=== PATIENT | male | born 1955 | race African-American/Black ===

== ENCOUNTER 2017-03-30 19:17 | Emergency (ER) | payer OTHER, MEDICAID ==
[~2017-03-30 19:17] MED LIST: ASPI81CH43 PO; Atorvastatin Calcium PO; CLOP75TA28 PO; ENA10T PO; FURO20TA PO; HYD25T PO; Hctz PO; MET50T PO; POT10T PO
== END 2017-03-30 19:38 | disposition left against medical advice (07) ==
LOC: ER 19:17
DX: H57.8 Other specified disorders of eye and adnexa (principal); Z53.21 Procedure and treatment not carried out due to patient leaving prior to being seen by health care provider

== ENCOUNTER 2023-03-15 13:56 | Emergency (ER) | payer OTHER, MEDICAID ==
[~2023-03-15] VITALS: Ht 175.3 cm; Wt 70.4 kg
[~2023-03-15 13:56] MED LIST changes: -ENA10T PO; +ENAL1TAB46 PO; +FURO1TAB33 PO; -FURO20TA PO
[2023-03-15 14:31] LABS: Basophils # (auto) 0.1 10 ^3/uL (0-0.2); Eosinophils # (auto) 0.2 10 ^3/uL (0-0.8); Eosinophils % (auto) 2.2 % (0.0-7.0); Hematocrit 41.9 % (41.0-53.0); Hemoglobin 13.7 g/dL (13.5-17.5); Lymphocytes % (auto) 26.8 % (10.0-50.0); Mean Corpuscular Hemoglobin 29.3 pg (28.0-32.0); Mean Corpuscular Hgb Conc. 32.7 g/dL (32.0-36.0); Mean Corpuscular Volume 89.4 fL (80.0-100.0); Monocytes # (auto) 0.8 10 ^3/uL (0-1.3); Monocytes % (auto) 6.8 % (0.0-12.0); Neutrophils % (auto) 63.2 % (37.0-80.0); Nucleated Red Blood Cells % 0.2 %; Red Blood Cells 4.68 10^6/uL (4.5-5.90); Red Cell Distribution Width 13.9 % (11.8-14.3); White Blood Cell 11.1 10^3/uL (4.4-10.8)
[2023-03-15 14:50] LABS: Calcium 9.1 mg/dL (8.5-10.1); Potassium 4.6 mmol/L (3.5-5.1)
[2023-03-15 14:53] LABS: Bilirubin, Total 0.3 mg/dL (0.2-1.0); Total Protein 7.7 g/dL (6.4-8.2)
[2023-03-15 18:51] VITALS: BP 185/94; PULSE 69; RESP 18; TEMP 98.4; O2SAT 98
== END 2023-03-15 18:57 | disposition home or self-care (01) ==
LOC: ER 13:56
DX: I20.9 Angina pectoris, unspecified (principal); I20.8 Other forms of angina pectoris; E78.5 Hyperlipidemia, unspecified; I10 Essential (primary) hypertension; Z88.5 Allergy status to narcotic agent; Z79.82 Long term (current) use of aspirin; Z79.899 Other long term (current) drug therapy; Z87.891 Personal history of nicotine dependence
CPT/HCPCS: 36415; 71045; 80053; 84484; 85025; 93005

== ENCOUNTER 2023-12-08 13:07 | Inpatient (IN) | payer OTHER, MEDICAID ==
[~2023-12-08] VITALS: Ht 176.5 cm; Wt 65.5 kg
[~2023-12-08 13:07] MED LIST changes: +IBUP-1454 PO
[2023-12-08 13:41] LABS: Basophils # (auto) 0.1 10 ^3/uL (0-0.2); Eosinophils # (auto) 0.3 10 ^3/uL (0-0.8); Eosinophils % (auto) 2.7 % (0.0-7.0); Hematocrit 41.6 % (41.0-53.0); Hemoglobin 13.7 g/dL (13.5-17.5); Lymphocytes # (auto) 4.2 10 ^3/uL (0.4-5.4); Lymphocytes % (auto) 37.5 % (10.0-50.0); Mean Corpuscular Hemoglobin 29.6 pg (28.0-32.0); Mean Corpuscular Hgb Conc. 32.9 g/dL (32.0-36.0); Mean Corpuscular Volume 89.7 fL (80.0-100.0); Monocytes # (auto) 0.8 10 ^3/uL (0-1.3); Monocytes % (auto) 7.5 % (0.0-12.0); Neutrophils # (auto) 5.8 10 ^3/uL (1.6-8.6); Neutrophils % (auto) 51.3 % (37.0-80.0); Nucleated Red Blood Cells % 0.1 %; Red Blood Cells 4.64 10^6/uL (4.5-5.90); Red Cell Distribution Width 14.4 % (11.8-14.3); White Blood Cell 11.2 10^3/uL (4.4-10.8)
[2023-12-08 13:59] LABS: INR 1.07 (0.9-1.15); Partial Thromboplastin Time 35.4 SEC (24.5-34.5); Prothrombin Time 11.2 sec (9.3-11.8)
[2023-12-08 14:02] LABS: Alanine Aminotransferase 15 U/L (7-40); Albumin 4.6 g/dL (3.2-4.8); Alkaline Phosphatase 90 U/L (46-116); Anion Gap 2 (5-15); Aspartate Aminotransferase 17 U/L (13-40); BUN/Creatinine Ratio 14.6 (10.0-20.0); Blood Urea Nitrogen 14 mg/dL (9-23); Calcium 9.6 mg/dL (8.7-10.4); Carbon Dioxide 24 mmol/L (20-30); Chloride 114 mmol/L (98-107); Glucose 97 mg/dL (74-106); Potassium 3.9 mmol/L (3.5-5.1); Sodium 140 mmol/L (136-145)
[2023-12-08 14:03] LABS: Bilirubin, Total 0.4 mg/dL (0.2-1.0); Total Protein 7.7 g/dL (5.7-8.2)
[2023-12-08] MEDS ORDERED: MORPHINE SULFATE INJ 2 MG/ml SYRG IV PRN ×2 (16:00)
[2023-12-08] MEDS ORDERED: NITROGLYCERIN 0.4 MG SL TAB SL PRN (16:00)
[2023-12-08] MEDS ORDERED: ACETAMINOPHEN 500 MG TAB PO PRN (16:00)
[2023-12-08] MEDS ORDERED: ONDANSETRON HCL 4 MG/2 ML VIAL IV PRN (16:00)
[2023-12-08] MEDS: ASPirin 325 MG TAB PO ONE (16:24)
[2023-12-08 18:38] VITALS: PULSE 51; RESP 12; O2SAT 99
[2023-12-08] MEDS: NITROGLYCERIN 0.4MG/HR TOPICAL PATCH TD ONE (18:52)
[2023-12-08 19:45] VITALS: PULSE 60; RESP 14; O2SAT 97
[2023-12-08 22:00] VITALS: BP 161/83; PULSE 63; RESP 18; TEMP 97.7; O2SAT 96
[2023-12-08 22:18] VITALS: BP 161/83; PULSE 63; RESP 18; TEMP 97.7; O2SAT 96
[2023-12-08] MEDS: METOPROLOL TARTRATE 25 MG TAB PO SCH (22:32)
[2023-12-08] MEDS: DOCUSATE SOD 100 MG CAP PO SCH (22:32)
[2023-12-08] MEDS: ATORVASTATIN 20 MG TAB PO SCH (22:32)
[2023-12-08] MEDS: ENOXAPARIN SOD 100 MG/1 ML SYRINGE SC SCH (22:33)
[2023-12-08] MEDS: HYDROcodone-ACET 5/325MG TAB PO PRN (22:34)
[2023-12-09] VITALS (9 sets, daily range): BP systolic 109–165; BP diastolic 63–83; PULSE 50–59; RESP 15–20; TEMP 97.7–98.5; O2SAT 96–99
[2023-12-09 00:17] LABS: Urine Bacteria None Seen /hpf (None Seen)
[2023-12-09 00:46] LABS: Urine Blood Negative /uL (Negative); Urine Clarity Clear (Clear); Urine Color Light-Yellow (Yellow); Urine Protein, UAD Negative (Negative); Urine Specific Gravity 1.017 (1.001-1.035); Urine Urobilinogen Normal (Negative); Urine WBC 1 /hpf (0 - 3); Urine pH 6.5 (5.0-9.0)
[2023-12-09 10:25] LABS: Anion Gap 7 (5-15); Carbon Dioxide 24 mmol/L (20-30); Chloride 109 mmol/L (98-107); Potassium 3.8 mmol/L (3.5-5.1); Sodium 140 mmol/L (136-145)
[2023-12-09 10:27] LABS: INR 1.04 (0.9-1.15); Partial Thromboplastin Time 33.6 SEC (24.5-34.5); Prothrombin Time 10.9 sec (9.3-11.8)
[2023-12-09] MEDS: ASPirin-EC 81 mg tab PO SCH (10:27)
[2023-12-09 10:30] LABS: Glucose 92 mg/dL (74-106)
[2023-12-09 10:31] LABS: BUN/Creatinine Ratio 13.5 (10.0-20.0); Blood Urea Nitrogen 13 mg/dL (9-23)
[2023-12-09 12:01] LABS: Basophils # (auto) 0.1 10 ^3/uL (0-0.2); Basophils % (auto) 0.6 % (0.0-2.0); Eosinophils # (auto) 0.3 10 ^3/uL (0-0.8); Eosinophils % (auto) 2.6 % (0.0-7.0); Hematocrit 39.2 % (41.0-53.0); Lymphocytes # (auto) 4.2 10 ^3/uL (0.4-5.4); Lymphocytes % (auto) 39.5 % (10.0-50.0); Mean Corpuscular Hemoglobin 29.8 pg (28.0-32.0); Mean Corpuscular Hgb Conc. 33.5 g/dL (32.0-36.0); Monocytes # (auto) 0.9 10 ^3/uL (0-1.3); Monocytes % (auto) 8.1 % (0.0-12.0); Nucleated Red Blood Cells % 0.2 %
[2023-12-09 12:08] LABS: Neutrophils # (auto) 5.3 10 ^3/uL (1.6-8.6); Neutrophils % (auto) 49.2 % (37.0-80.0); White Blood Cell 10.7 10^3/uL (4.4-10.8)
[2023-12-09 12:13] LABS: Hemoglobin 13.1 g/dL (13.5-17.5)
[2023-12-09] MEDS ORDERED: METO25TA5 PO (14:14)
[2023-12-09] MEDS ORDERED: RIVA2.5T PO (14:14)
[2023-12-09] MEDS ORDERED: NIFE90TA75 PO (14:14)
[2023-12-09] MEDS ORDERED: ENAL1TAB46 PO (14:16)
[2023-12-09] MEDS: hydrALAZINE HCL 20 MG/ML VL IV PRN (16:59)
[2023-12-10] VITALS (8 sets, daily range): BP systolic 153–170; BP diastolic 57–83; PULSE 54–99; RESP 14–20; TEMP 97.3–98.1; O2SAT 95–99
[2023-12-10] MEDS: LOSARTAN POTASSIUM 25 MG TAB PO ONE (14:32)
[2023-12-10] MEDS: HYDROcodone-ACET 10/325MG TAB PO PRN (15:36)
[2023-12-11] VITALS (7 sets, daily range): BP systolic 143–190; BP diastolic 67–76; PULSE 48–62; RESP 14–18; TEMP 97.4–98.2; O2SAT 96–98
[2023-12-11] MEDS: LOSARTAN POTASSIUM 25 MG TAB PO SCH (08:14)
[2023-12-11] MEDS: HYDROcodone-ACET 10/325MG TAB PO PRN (20:22)
[2023-12-12] VITALS (10 sets, daily range): BP systolic 146–196; BP diastolic 55–81; PULSE 51–62; RESP 12–17; TEMP 36.6; O2SAT 93–98
[2023-12-12] MEDS: IODIXANOL 320MG/ML 100ML BTL IV ONE (07:58)
[2023-12-12] MEDS: LIDOCAINE 2%HCL (LOCAL ANESTH.) INJ 20ML MDV ONE (07:58)
[2023-12-12] MEDS: fentaNYL CITRATE 100 MCG/2 ML VL ONE (08:02)
[2023-12-12] MEDS: ANGIOMAX 250 MG VIAL IV ONE (08:02)
[2023-12-12] MEDS: MIDAZOLAM HCL 2MG/2ML 2ml VIAL (1mg/ml) ONE (08:02)
[2023-12-12] MEDS: VERAPAMIL 2.5MG/ML INJ 2ML VIAL IV ONE (08:02)
[2023-12-12] MEDS: HEPARIN SODIUM (PORCINE) 5000 UNITS/ML 1ML VIAL ONE (08:02)
[2023-12-12] MEDS: SODIUM CHL 0.9% 0 ML ONE (08:03)
[2023-12-12] MEDS ORDERED: ISOS1TAB28 PO (09:56)
[2023-12-12] MEDS: ISOSORBIDE MONONITRATE ER 60 MG TAB PO SCH (10:51)
[2023-12-12] MEDS ORDERED: HYDR-4902 PO (11:27)
== END 2023-12-12 16:04 | disposition home or self-care (01) | DRG 287 ==
LOC: ER 13:07 → TELE 15:51 → TELE-EAST 15:56
PROVIDERS: ADMIT Nurse Practitioner Acute Care; ATTEND Nurse Practitioner Acute Care
PROC: B211YZZ Fluoroscopy of Multiple Coronary Arteries using Other Contrast (ICD-10-PCS; principal; 2023-12-12)
PROC: 4A023N7 Measurement of Cardiac Sampling and Pressure, Left Heart, Percutaneous Approach (ICD-10-PCS; 2023-12-12)
DX: T82.855A Stenosis of coronary artery stent, initial encounter (principal); I25.10 Atherosclerotic heart disease of native coronary artery without angina pectoris; E78.5 Hyperlipidemia, unspecified; M54.9 Dorsalgia, unspecified; Y83.1 Surgical operation with implant of artificial internal device as the cause of abnormal reaction of the patient, or of later complication, without mention of misadventure at the time of the procedure; G89.4 Chronic pain syndrome; I11.0 Hypertensive heart disease with heart failure; Z79.899 Other long term (current) drug therapy; Z87.891 Personal history of nicotine dependence; Z88.6 Allergy status to analgesic agent; Y92.89 Other specified places as the place of occurrence of the external cause
CPT/HCPCS: 36415; 71045; 80048; 80053; 81001; 83735; 83880; 84484; 85025; 85610; 85730; 86141; 93005; 93306; 93458; 99152; 99291; G0378; J2250; Q9967

== ENCOUNTER 2024-12-28 15:43 | Inpatient (IN) | payer OTHER, MEDICAID ==
[~2024-12-28] VITALS: Ht 177.8 cm; Wt 65.0 kg
[~2024-12-28 15:43] MED LIST changes: -Atorvastatin Calcium PO; -CLOP75TA28 PO; -FURO1TAB33 PO; -HYD25T PO; +HYDR-4902 PO; -Hctz PO; +ISOS1TAB28 PO; -MET50T PO; +METO25TA5 PO; +NIFE90TA75 PO; -POT10T PO; +RIVA2.5T PO
--- NOTE | 2024-12-28 15:55 | ED.PDOC ---
History of Present Illness HPI Comments 69-year-old male came from [facility] because has been feeling dizzy for the past few weeks more so started yesterday. Patient unable to ambulate without feeling dizzy. His blood pressure was 202/91 heart rate of 47. He does take enalapril metoprolol nifedipine for his blood pressure. History of coronary artery stent placement eight years ago. Denies any other symptoms. Time Seen by MD: 15:49 Primary Care Provider: VLADIMIR Lemus Notes: Nurses Notes, Medications, Allergies Allergies: Coded Allergies: Morphine (Verified Allergy, Severe, seizure, 03/21/16) Home Meds Active Scripts Hydrocodone-Acetaminophen (Hydrocodone Bitartrate/AC 5-325 mg) 1 Tab Tab, 1 TAB PO Q6HP PRN for 5 Days, #20 TAB Prov:LAURYN BETANCUR CAMERA REPAIRER 12/12/23 Isosorbide Mononitrate (Isosorbide Mononitrate Er) 30 Mg Tab, 1 TAB PO DAILY for 60 Days, #60 TAB 5 Refills Prov:LAURYN BETANCUR NP 12/12/23 Ibuprofen (Ibuprofen) 600 Mg Tab, 1 TAB PO Q6HP PRN, #30 TAB Prov:NARESH FRANKLIN PAC 12/04/23 Aspirin (Asa) 81 Mg Ch, 81 MG PO DAILY, #30 Prov:TOÑITO CORONADO MD 03/15/16 Reported Medications Enalapril Maleate (VASOTEC TABLET) 10 Mg Tb, 1 TAB PO DAILY, TAB 12/09/23 Rivaroxaban (Xarelto) 2.5 Mg Tab, 2.5 MG PO BID, TAB 12/09/23 Nifedipine (Nifedipine Er) 90 Mg Tab, 90 MG PO DAILY, TAB 12/09/23 Metoprolol Tartrate (Metoprolol Tartrate) 25 Mg Tab, 25 MG PO BID, MG 12/09/23 Information Source: Patient, Emergency Med Personnel Mode of Arrival: EMS Severity: Moderate Timing: Days Duration: Since onset Past Medical History PAST MEDICAL HISTORY: High Lipids, HTN, ME Surgical History: PTCA Family History Family History: Unobtainable Social History Smoker: Quit Greater Than 1 Year, Cigarettes Alcohol: Denies ETOH Use Drugs: Marijuana Lives In: Home Constitutional: denies: chills, diaphoresis, fatigue, fever, malaise, sweats, weakness, others EENTM: denies: blurred vision, double vision, ear bleeding, ear discharge, ear drainage, ear pain, ear ringing, eye pain, eye redness, hearing loss, mouth pain, mouth swelling, nasal discharge, nose bleeding, nose congestion, nose pain, photophobia, tearing, throat pain, throat swelling, voice changes, others Respiratory: denies: cough, hemoptysis, orthopnea, SOB at rest, shortness of breath, SOB with excertion, stridor, wheezing, others Cardiovascular: denies: chest pain, dizzy spells, diaphoresis, Dyspnea on exertion, edema, irregular heart beat, left arm pain, lightheadedness, palpitations, PND, syncope, others Gastrointestinal: denies: abdomen distended, abdominal pain, blood streaked bowels, constipated, diarrhea, dysphagia, difficulty swallowing, hematemesis, melena, nausea, poor appetite, poor fluid intake, rectal bleeding, rectal pain, vomiting, others Genitourinary: denies: burning, dysuria, flank pain, frequency, hematuria, incontinence, penile discharge, penile sore, pain, testicle pain, testicle swelling, urgency, others Neurological: reports: dizziness; denies: fainting, headache, left sided numbness, left sided weakness, numbness, paresthesia, pre-existing deficit, right sided numbness, right sided weakness, seizure, speech problems, tingling, tremors, weakness, others Musculoskeletal: denies: back pain, gout, joint pain, joint swelling, muscle pain, muscle stiffness, neck pain, others Integumetry: denies: bruises, change in color, change in hair/nails, dryness, laceration, lesions, lumps, rash, wounds, others Allergic/Immunocompromised: denies: Difficulty Healing, Frequent Infections, Hives, Itching, others Hematologic/Lymphatic: denies: anemia, blood clots, easy bleeding, easy bruising, swollen glands, others Endocrine: denies: excessive hunger, excessive sweating, excessive thirst, excessive urination, flushing, intolerance to cold, intolerance to heat, unexplained weight gain, unexplained weight loss, others Psychiatric: denies: anxiety, bipolar disorder, depression, hopeless, panic disorder, schizophrenia, sleepless, suicidal, others Physical Exam General Appearance: Moderate Distress HEENT: Normal ENT Inspection, Pharynx Normal, TMs Normal Neck: Full Range of Motion, Non-Tender, Normal, Normal Inspection Respiratory: Chest Non-Tender, Lungs Clear, No Accessory Muscle Use, No Respiratory Distress, Normal Breath Sounds Cardiovascular: Bradycardia Breast Exam: Deferred Gastrointestinal: No Organomegaly, Non Tender, No Pulsatile Mass, Normal Bowel Sounds, Soft Genitalia: Deferred Pelvic: Deferred Rectal: Deferred Extremities: No calf tenderness, Normal capillary refill, Normal inspection, Normal range of motion, Non-tender, No pedal edema Musculoskeletal : Apperance: Normal Neurologic: Alert, charge preparation technician II-XII nml as Tested, No Motor Deficits, Normal Affect, Normal Mood, No Sensory Deficits Cerebellar Function: NOT DONE Reflexes: NOT DONE Skin: Dry, Normal Color, Warm Peripheral Pulses: 3+ Radial (R), 3+ Radial (L) Lymphatic: No Adenopathy Was a procedure done? Was a procedure done?: No EKG EKG : Pulse Rate (adult): 47 Cardiac Rhythm: SB Differential Dx Considerations may include: Bradycardia Electrolyte imbalance X-Ray, Labs, Meds, VS Vital Signs Date Time Temp Pulse Resp B/P (MAP) Pulse Ox O2 Delivery O2 Flow Rate FiO2 12/28/24 16:52 65 22 98 Room Air* 0 21 12/28/24 16:51 97.5 65 22 181/74 (109) 98 97.5 12/28/24 16:39 99.0 47 16 202/91 (128) 98 99.0 12/28/24 15:55 47 Lab Test 12/28/24 16:30 12/28/24 16:25 12/28/24 15:58 Range/Units POC Glucose 103 93 70-106 mg/dl White Blood Count 12.3 H 4.4-10.8 10^3/uL Red Blood Count 4.82 4.5-5.90 10^6/uL Hemoglobin 14.4 13.5-17.5 g/dL Hematocrit 43.0 41.0-53.0 % Mean Corpuscular Volume 89.1 80.0-100.0 fL Mean Corpuscular Hemoglobin 29.8 28.0-32.0 pg Mean Corpuscular Hemoglobin Concent 33.4 32.0-36.0 g/dL Red Cell Distribution Width 13.9 11.8-14.3 % Platelet Count 273 140-450 10^3/uL Mean Platelet Volume 7.6 6.9-10.8 fL Neutrophils (%) (Auto) 75.5 37.0-80.0 % Lymphocytes (%) (Auto) 17.3 10.0-50.0 % Monocytes (%) (Auto) 6.2 0.0-12.0 % Eosinophils (%) (Auto) 0.5 0.0-7.0 % Basophils (%) (Auto) 0.5 0.0-2.0 % Neutrophils # (Auto) 9.3 H 1.6-8.6 10 ^3/uL Lymphocytes # (Auto) 2.1 0.4-5.4 10 ^3/uL Monocytes # (Auto) 0.8 0-1.3 10 ^3/uL Eosinophils # (Auto) 0.1 0-0.8 10 ^3/uL Basophils # (Auto) 0.1 0-0.2 10 ^3/uL Nucleated Red Blood Cells 0.1 % Sodium Level 144 136-145 mmol/L Potassium Level 5.0 3.5-5.1 mmol/L Chloride Level 111 H 98-107 mmol/L Carbon Dioxide Level 28 20-31 mmol/L Anion Gap 5 5-15 Blood Urea Nitrogen 21 9-23 mg/dL Creatinine 1.07 0.700-1.30 mg/dL Glomerular Filtration Rate Calc 76 >90 mL/min BUN/Creatinine Ratio 19.6 10.0-20.0 Serum Glucose 100 74-106 mg/dL Calcium Level 9.5 8.7-10.4 mg/dL Troponin I High Sensitivity 20 </=54 ng/L Current Medications Medications (Trade) Dose Ordered Sig/Spring Route Start Time Stop Time Status Last Admin Sodium Chloride 1,000 ml @ 1,000 mls/hr Q1H ONCE IV 12/28/24 16:00 12/28/24 16:59 DC 12/28/24 16:35 Glucagon (Glucagen) 1 mg ONCE ONCE IM 12/28/24 16:15 12/28/24 16:16 DC 12/28/24 16:42 Patient alert. Complaining of dizziness. Possibly from the heart. Blood pressure elevated. Was given clonidine. EKG does show Bradycardia. Was given glucagon. Establish intravenous access. Was given fluids. Continues to be bradycardic. Cardiology consultation. Echocardiogram. Pacemaker evaluation. Possibly from metoprolol. Reviewed his history. Explained to the patient. Continue monitoring. While waiting for a bed he had a syncopal episode in the ER. Cardiac marker within normal limits. WBC elevated. Possible dehydration. [place] approved inpatient admission [id number]. Time of 1ST Reevaluation: 15:52 Reevaluation 1ST: Unchanged Patient Education/Counseling: Diagnosis, Treatment, Prognosis Family Education/Counseling: No Family Present Departure 1 Departure Time of Disposition: 15:54 Impression: Primary Impression: Bradycardia Additional Impressions: Hypertensive urgency Syncope Qualified Codes: R55 - Syncope and collapse Disposition: 09 ADMITTED INPATIENT Admit to: Med Surg Condition: Guarded Critical Care Note Critical Care Time?: Yes (90 min-critical care time only) Critical care comment: Bradycardia Stability Stability form required: No Heart Score Heart Score: Heart Score Response (Comments) Value History Slightly Suspicious 0 EKG Normal 0 Age >65 2 Risk Factors >3 or Hx ASHD 2 Troponin Normal limit 0 Total 4 OBDULIO KUNZ MD December 28, 2024 15:55
[2024-12-28] MEDS: SODIUM CHLORIDE 0.9% 1,000 ML IV ONE ×2 (16:35→18:59)
[2024-12-28 16:40] LABS: Basophils # (auto) 0.1 10 ^3/uL (0-0.2); Basophils % (auto) 0.5 % (0.0-2.0); Eosinophils # (auto) 0.1 10 ^3/uL (0-0.8); Eosinophils % (auto) 0.5 % (0.0-7.0); Hemoglobin 14.4 g/dL (13.5-17.5); Lymphocytes # (auto) 2.1 10 ^3/uL (0.4-5.4); Lymphocytes % (auto) 17.3 % (10.0-50.0); Mean Corpuscular Hemoglobin 29.8 pg (28.0-32.0); Mean Corpuscular Hgb Conc. 33.4 g/dL (32.0-36.0); Mean Corpuscular Volume 89.1 fL (80.0-100.0); Monocytes # (auto) 0.8 10 ^3/uL (0-1.3); Monocytes % (auto) 6.2 % (0.0-12.0); Neutrophils # (auto) 9.3 10 ^3/uL (1.6-8.6); Neutrophils % (auto) 75.5 % (37.0-80.0); Nucleated Red Blood Cells % 0.1 %; Platelet Count (auto) 273 10^3/uL (140-450); Red Blood Cells 4.82 10^6/uL (4.5-5.90); Red Cell Distribution Width 13.9 % (11.8-14.3); White Blood Cell 12.3 10^3/uL (4.4-10.8)
[2024-12-28] MEDS: GLUCAGON EMERG KIT 1mg/1ml IM ONE (16:42)
[2024-12-28 16:46] LABS: Sodium 144 mmol/L (136-145)
[2024-12-28 16:47] LABS: Anion Gap 5 (5-15); Calcium 9.5 mg/dL (8.7-10.4); Carbon Dioxide 28 mmol/L (20-31)
[2024-12-28 16:49] LABS: Chloride 111 mmol/L (98-107)
[2024-12-28 16:52] VITALS: PULSE 65; RESP 22; O2SAT 98
[2024-12-28 16:52] LABS: BUN/Creatinine Ratio 19.6 (10.0-20.0); Blood Urea Nitrogen 21 mg/dL (9-23); Glucose 100 mg/dL (74-106)
[2024-12-28 18:08] LABS: Urine Bacteria None Seen /hpf (None Seen)
[2024-12-28] MEDS: hydrALAZINE HCL 20 MG/ML VL IV ONE (18:15)
[2024-12-28 18:36] LABS: Urine Blood Negative /uL (Negative); Urine Clarity Clear (Clear); Urine Color Light-Yellow (Yellow); Urine Protein, UAD Negative (Negative); Urine Squamous Epithelial Cell FEW /hpf (<5); Urine Urobilinogen Normal (Negative); Urine WBC < 1 /HPF (0-3)
--- NOTE | 2024-12-28 19:07 | DVH ---
EXAM: CT HEAD WITHOUT CONTRAST INDICATION: dizzy TECHNIQUE: CT of the head without intravenous contrast. Radiation Dose Information: CT Dose: CTDI volume is 4.84 mGy. Dose-length product is 971.32 mGy*cm The dose indicators for CT are the volume Computed Tomography (CT) Dose Index (CTDIvol) and the Dose Length Product (DLP), and are measured in units of mGy and mGy-cm, respectively. These indicators are not patient dose, but values generated from the CT scanner acquisition factors. The report includes radiation exposure data for exposures received during this examination. COMPARISON: None FINDINGS: There is no evidence of acute intracranial hemorrhage, extra-axial collection, mass effect, midline s hift, herniation or hydrocephalus. The ventricles, sulci and cisterns are age appropriate. The lambert-white differentiation is intact. Patchy periventricular and subcortical white matter hypoattenuation is nonspecific but may be related to small vessel ischemic disease. Small inclusion cyst floor of the right maxillary sinus and mastoid air cells are clear. The surrounding soft tissues and osseous structures are unremarkable. IMPRESSION: 1. No acute intracranial hemorrhage. 2. No CT findings of territorial ischemia. 3. There is a small inclusion cyst in the floor of the right maxillary sinus. HS:Y
[2024-12-28 19:54] VITALS: PULSE 65; RESP 14; O2SAT 97
[2024-12-28] MEDS ORDERED: ACETAMINOPHEN 325 MG TAB PO PRN (20:00)
[2024-12-28] MEDS ORDERED: DOCUSATE SOD 100 MG CAP PO PRN (20:00)
[2024-12-28] MEDS ORDERED: ONDANSETRON HCL 4 MG/2 ML VIAL IV PRN (20:00)
[2024-12-28] MEDS: HYDROcodone-ACET 5/325MG TAB PO PRN (20:53)
[2024-12-28] MEDS: ATORVASTATIN 20 MG TAB PO SCH (20:54)
[2024-12-28] MEDS: amLODIPine BESYLATE 5 MG TAB PO ONE (20:54)
[2024-12-28] MEDS: METOPROLOL TARTRATE 50 MG TAB PO SCH (20:55)
[2024-12-28] MEDS: SODIUM CHLOR 0.9% PF (SALINE LOCK) 10ML VIAL/SYR IV SCH (20:55)
[2024-12-28] MEDS: cefTRIAXone 1GM/50ML D5W 50 ML IV ONE (21:39)
--- NOTE | 2024-12-28 22:42 | DVHHP2 ---
History of Present Illness Reason for Visit: Syncope and collapse History of Present Illness The patient is a 69-year-old male with past medical history of hypertension, ND, and hyperlipidemia who presented to [facility] ED with complaint of dizziness for the past 2 week. Patient reports symptoms progressively get worse with difficulty ambulating due to spinning sensation, elevated blood pressure, getting worse that prompted this visit. Patient was seen and evaluated in the ED, laboratory data shows WBC 12.3, platelets 273, sodium 144, potassium 5.0, BUN 21, creatinine 1.07, glucose 100, calcium 9.5, troponin 20, blood pressure 202/91 trending down to 151/73, heart rate 47 trending up to 65, temperature 97.6� F, O2 saturation 98% on oxygen. Head CT showed no acute intracranial hemorrhage. Please see medication orders section in the computer. On my assessment, patient denies chest pain, no headache, no dizziness, no diaphoresis, no shortness of breath, no nausea, no vomiting, no fever, no chills. Patient was admitted for further evaluation and medical management. Past Medical History High Lipids, HTN, ND Past Surgical History PTCA with 3 stents Family History Reviewed, noncontributory to the management of this case. Past Social History Patient lives at home, quit smoking cigarettes greater than 1 year, denies ETOH abuse, uses marijuana. Review of Systems Constitutional: Yes: Weakness; No: Fever, Chills, Sweats, Malaise, Other Eyes: No: Pain, Vision change, Conjunctivae inflammation, Eyelid inflammation, Other, Redness ENT: No: Ear pain, Ear discharge, Nose pain, Nose discharge, Nose congestion, Mouth pain, Mouth swelling, Throat pain, Throat swelling, Other Respiratory: No: Cough, Dry, Shortness of breath, SOB with excertion, Wheezing, Hemoptysis, Pleuritic Pain, Sputum, Wheezing, Other Cardiovascular: No: Chest Pain, Palpitations, Orthopnea, Paroxysmal Noc. Dyspnea, Edema, Lt Headedness, Other Gastrointestinal: No: Nausea, Vomiting, Abdominal Pain, Diarrhea, Constipation, Melena, Hematochezia, Other Genitourinary: No Dysuria, No Frequency, No Incontinence, No Hematuria, No Retention, No Other Musculoskeletal: No: other, neck pain, shoulder pain, arm pain, back pain, hand pain, leg pain, foot pain Skin: No: Rash, Lesions, Jaundice, Bruising, Other Neurological: Other (Dizziness); No: Weakness, Numbness, Incoordination, Change in speech, Confusion, Seizures Allergies: Coded Allergies: Morphine (Verified Allergy, Severe, seizure, 03/21/16) Medications Current Medications Medications Dose Ordered Sig/Spring Route Start Time Stop Time Status Last Admin Dose Admin Metoprolol Tartrate 50 mg BID PO 12/28/24 22:00 12/28/24 20:55 50 MG Amlodipine Besylate 5 mg DAILY PO 12/29/24 10:00 Hydralazine HCl 10 mg Q6HP PRN IV 12/28/24 20:00 Atorvastatin Calcium 20 mg HS PO 12/28/24 22:00 12/28/24 20:54 20 MG Apixaban 2.5 mg BID PO 12/28/24 22:00 Sodium Chloride 10 ml Q8HR IV 12/28/24 22:00 12/28/24 20:55 10 ML Acetaminophen/ Hydrocodone Bitart 1 tab Q4HP PRN PO 12/28/24 20:00 12/28/24 20:53 1 TAB Ondansetron HCl 4 mg Q4HP PRN IV 12/28/24 20:00 Docusate Sodium 100 mg BIDPRN PRN PO 12/28/24 20:00 Acetaminophen 650 mg Q6HP PRN PO 12/28/24 20:00 Ceftriaxone Sodium 50 ml @ 100 mls/hr DAILY@09 IV 12/29/24 09:00 Exam Vital Signs Vital Signs Date Time Temp Pulse Resp B/P (MAP) Pulse Ox O2 Delivery O2 Flow Rate FiO2 12/28/24 20:55 65 173/74 12/28/24 16:52 22 98 Room Air* 0 21 12/28/24 16:51 97.5 97.5 General Appearance: Alert, Oriented X3, Cooperative, No acute distress HEENT: Atraumatic, PERRLA, EOMI, Mucous membr. moist/pink Respiratory: Clear to auscultation, Normal air movement Cardiovascular: Regular rate, Normal S1, Normal S2, No murmurs Abdominal: Normal bowel sounds, Soft, No tenderness, No hepatospenomegaly, No masses Extremities: No clubbing, No cyanosis, No edema, Normal pulses, No tenderness/swelling Skin: No rashes, No breakdown, No significant lesion Neuro: Normal speech, Normal tone, Sensation intact, Cranial nerves 3-12 NL, Reflexes 2+, Other (Generalized weakness) Psych/Mental Status: Mental status NL, Mood NL Labs/Xrays Labs Test 12/28/24 17:58 12/28/24 16:30 12/28/24 16:25 Range/Units Urine Color Light-yellow Yellow Urine Clarity Clear Clear Urine pH 7.0 5.0-9.0 Urine Specific [place] 1.020 1.001-1.035 Urine Protein Negative Negative Urine Ketones Negative Negative Urine Blood Negative Negative /uL Urine Nitrite Negative Negative Urine Bilirubin Negative Negative Urine Urobilinogen Normal Negative mg/dL Urine Leukocyte Esterase Negative Negative /uL Urine RBC 9 0 - 3 /hpf Urine Microscopic WBC < 1 0-3 /HPF Urine Squamous Epithelial Cells Few <5 /hpf Urine Bacteria None seen None Seen /hpf Urine Glucose Normal Normal mg/dL POC Glucose 103 70-106 mg/dl White Blood Count 12.3 H 4.4-10.8 10^3/uL Red Blood Count 4.82 4.5-5.90 10^6/uL Hemoglobin 14.4 13.5-17.5 g/dL Hematocrit 43.0 41.0-53.0 % Mean Corpuscular Volume 89.1 80.0-100.0 fL Mean Corpuscular Hemoglobin 29.8 28.0-32.0 pg Mean Corpuscular Hemoglobin Concent 33.4 32.0-36.0 g/dL Red Cell Distribution Width 13.9 11.8-14.3 % Platelet Count 273 140-450 10^3/uL Mean Platelet Volume 7.6 6.9-10.8 fL Neutrophils (%) (Auto) 75.5 37.0-80.0 % Lymphocytes (%) (Auto) 17.3 10.0-50.0 % Monocytes (%) (Auto) 6.2 0.0-12.0 % Eosinophils (%) (Auto) 0.5 0.0-7.0 % Basophils (%) (Auto) 0.5 0.0-2.0 % Neutrophils # (Auto) 9.3 H 1.6-8.6 10 ^3/uL Lymphocytes # (Auto) 2.1 0.4-5.4 10 ^3/uL Monocytes # (Auto) 0.8 0-1.3 10 ^3/uL Eosinophils # (Auto) 0.1 0-0.8 10 ^3/uL Basophils # (Auto) 0.1 0-0.2 10 ^3/uL Nucleated Red Blood Cells 0.1 % Sodium Level 144 136-145 mmol/L Potassium Level 5.0 3.5-5.1 mmol/L Chloride Level 111 H 98-107 mmol/L Carbon Dioxide Level 28 20-31 mmol/L Anion Gap 5 5-15 Blood Urea Nitrogen 21 9-23 mg/dL Creatinine 1.07 0.700-1.30 mg/dL Glomerular Filtration Rate Calc 76 >90 mL/min BUN/Creatinine Ratio 19.6 10.0-20.0 Serum Glucose 100 74-106 mg/dL Calcium Level 9.5 8.7-10.4 mg/dL Troponin I High Sensitivity 20 </=54 ng/L PATIENT: KANWAL MARQUEZ ACCT: [id number] UNIT: [id number] : 1955 LOC: ER ROOM / BED: / AGE / SEX: 69 / M ADM STATUS: REG ER SERVICE 1607 ORDERING PHYSICIAN: OBDULIO KUNZ MD PROCEDURE(s): HWOCT - HEAD WITHOUT CONTRAST REASON: dizzy ORDER NUMBER(s): [id number], ACCESSION NUMBER(s): [id number] EXAM: CT HEAD WITHOUT CONTRAST INDICATION: dizzy TECHNIQUE: CT of the head without intravenous contrast. Radiation Dose Information: CT Dose: CTDI volume is 4.84 mGy. Dose-length product is 971.32 mGy*cm The dose indicators for CT are the volume Computed Tomography (CT) Dose Index (CTDIvol) and the Dose Length Product (DLP), and are measured in units of mGy and mGy-cm, respectively. These indicators are not patient dose, but values generated from the CT scanner acquisition factors. The report includes radiation exposure data for exposures received during this examination. COMPARISON: None FINDINGS: There is no evidence of acute intracranial hemorrhage, extra-axial collection, mass effect, midline shift, herniation or hydrocephalus. The ventricles, sulci and cisterns are age appropriate. The lambert-white differentiation is intact. Patchy periventricular and subcortical white matter hypoattenuation is nonspecific but may be related to small vessel ischemic disease. Small inclusion cyst floor of the right maxillary sinus and mastoid air cells are clear. The surrounding soft tissues and osseous structures are unremarkable. IMPRESSION: 1. No acute intracranial hemorrhage. 2. No CT findings of territorial ischemia. 3. There is a small inclusion cyst in the floor of the right maxillary sinus. Assessment/Plan Assessment/Plan Hypertensive urgency Bradycardia Syncope Syncope and collapse Leukocytosis, unspecified Plan 1. Admit to telemetry unit 2. Breathing treatment 3. Pain control management 4. IV antibiotic management 5. Management of fluids and electrolytes 6. Consultation for hospitalist 7. Diagnostic test-head CT 8. DVT prophylaxis on SCDs 9. Repeat labs CBC, CMP in a.m. 10. Home medication reviewed and reconciled 11. Continue with current medical management 12. Treatment plan discussed with patient and RN. Patient verbalized understanding. Plan discussed with: Patient, Other (RN) My Orders Orders - ROLAND GARENR DNP Procedure Category Date Status Time Metoprolol Tartrate PHA 12/28/24 In Process Tablet (Lopressor Ta 22:00 Amlodipine Tablet PHA 12/29/24 In Process (Norvasc Tablet) 10:00 Hydralazine Injection PHA 12/28/24 In Process (Apresoline Inject 20:00 Atorvastatin (Lipitor) PHA 12/28/24 In Process 22:00 Allergies CHUCK 12/28/24 In Process 19:58 Code Status CODE 12/28/24 Transmitted 19:58 Sodium Chloride Lock PHA 12/28/24 In Process (Saline Lock Ns) 22:00 Oxygen Per Hour RT 12/28/24 Transmitted 19:58 Hydrocodone-Acet PHA 12/28/24 In Process 5/325mg Tab ([place] 20:00 Ondansetron Hcl PHA 12/28/24 In Process (Zofran) 20:00 Docusate Sodium PHA 12/28/24 In Process Capsule (Colace 20:00 Complete Blood Count LAB 12/29/24 Verified 04:00 Comprehensive LAB 12/29/24 Verified Metabolic Panel 04:00 Cardiac DIET 12/29/24 Transmitted Diet-2gna,Lofat,Lochol Breakfast Condition: Serious CHUCK 12/28/24 In Process 19:58 Acetaminophen Tablet PHA 12/28/24 In Process (Tylenol Tablet) 20:00 Bedrest With Bathroom CHUCK 12/28/24 In Process Privileg 19:58 Sequential CHUCK 12/28/24 In Process Compression Device Apixaban (Eliquis) PHA 12/28/24 In Process 22:00 Ceftriaxone 1gm/50ml PHA 12/29/24 In Process D5w (Rocephin) 09:00 * Cardiology Consult CONS 12/28/24 Verified 22:38 Admit ADMIT 12/28/24 Verified 22:38 Nitroglycerin PHA 12/28/24 Verified Sublingual (Ntrostat 22:45 Morphine Sulfate PHA 12/28/24 Verified Injection 22:45 Notify Of Changes [facility] 12/28/24 Verified From Base 22:38 Cone Worker For [facility] 12/28/24 Verified 24 Hours 22:38 Emergency Dysrhythmia [facility] 12/28/24 Verified Protocol 22:38 Rhythm Strips Once [facility] 12/28/24 Verified Every Shift 22:38 Oxygen By Nasal RT 12/28/24 Verified Cannula 22:38 Problem List: (1) Hypertensive urgency (2) Bradycardia (3) Syncope (4) Syncope and collapse (5) Leukocytosis, unspecified Date of Service: December 28, 2024 Billing Provider: ROLAND GARNER DNP Common Visit Codes: 49971-EPSPUYS INP/OBS CARE (HIGH) ROLAND GARNER DNP December 28, 2024 22:41
[2024-12-28] MEDS ORDERED: MORPHINE SULFATE INJ 2 MG/ml SYRG IV PRN (22:45)
[2024-12-28] MEDS ORDERED: NITROGLYCERIN 0.4 MG SL TAB SL PRN (22:45)
[2024-12-29] VITALS (9 sets, daily range): BP systolic 150–187; BP diastolic 65–82; PULSE 57–151; RESP 16–73; TEMP 97.9–98.4; O2SAT 95–98
[2024-12-29] MEDS: APIXABAN 2.5 MG TAB PO SCH (00:05)
[2024-12-29] MEDS: hydrALAZINE HCL 20 MG/ML VL IV PRN (02:19)
--- NOTE | 2024-12-29 07:14 | ECG ---
[facility] Test Date: 2024-12-28 Test Time: 15:42:11 Pat Name: KANWAL MARQUEZ Department: ED Room: 0222T A Gender: M Changeover Operator: EULOGIO : 1955 Requested By: OBDULIO KUZN Order Number: [id number] Reading MD: Jevon Yi Measurements Intervals [place] Rate: 47 P: 70 ME: 162 QRS: 19 QRSD: 93 T: -55 QT: 439 QTc: 388 Interpretive Statements Sinus bradycardia Atrial premature complex Abnormal T, consider ischemia, diffuse leads Electronically Signed On 01-02-2025 12:08:31 PDT by Jevon Yi Please click the below link to view image of tracing.
[2024-12-29 07:18] LABS: Basophils # (auto) 0 10 ^3/uL (0-0.2); Basophils % (auto) 0.2 % (0.0-2.0); Eosinophils # (auto) 0 10 ^3/uL (0-0.8); Eosinophils % (auto) 0.1 % (0.0-7.0); Hematocrit 40.2 % (41.0-53.0); Hemoglobin 13.7 g/dL (13.5-17.5); Lymphocytes # (auto) 2.1 10 ^3/uL (0.4-5.4); Lymphocytes % (auto) 19.4 % (10.0-50.0); Mean Corpuscular Hemoglobin 30.2 pg (28.0-32.0); Mean Corpuscular Hgb Conc. 34.2 g/dL (32.0-36.0); Mean Corpuscular Volume 88.3 fL (80.0-100.0); Monocytes # (auto) 0.6 10 ^3/uL (0-1.3); Monocytes % (auto) 5.3 % (0.0-12.0); Neutrophils # (auto) 8.1 10 ^3/uL (1.6-8.6); Nucleated Red Blood Cells % 0.1 %; Platelet Count (auto) 260 10^3/uL (140-450); Red Blood Cells 4.55 10^6/uL (4.5-5.90); Red Cell Distribution Width 13.9 % (11.8-14.3); White Blood Cell 10.8 10^3/uL (4.4-10.8)
[2024-12-29 07:34] LABS: Alanine Aminotransferase 19 U/L (7-40); Albumin 4.4 g/dL (3.2-4.8); Alkaline Phosphatase 83 U/L (46-116); Anion Gap 8 (5-15); Aspartate Aminotransferase 22 U/L (13-40); Blood Urea Nitrogen 15 mg/dL (9-23); Calcium 9.3 mg/dL (8.7-10.4); Carbon Dioxide 23 mmol/L (20-31); Glucose 103 mg/dL (74-106); Potassium 3.7 mmol/L (3.5-5.1); Sodium 142 mmol/L (136-145); Total Protein 7.4 g/dL (5.7-8.2)
[2024-12-29 07:35] LABS: Bilirubin, Total 0.7 mg/dL (0.2-1.0)
[2024-12-29 07:43] LABS: Chloride 111 mmol/L (98-107)
[2024-12-29] MEDS: cefTRIAXone 1GM/50ML D5W 50 ML IV SCH (09:21)
[2024-12-29] MEDS: amLODIPine BESYLATE 5 MG TAB PO SCH (09:23)
--- NOTE | 2024-12-29 09:43 | DVHINCON2 ---
Date Seen: December 29, 2024 Referring Physician Sabrina Reason for Consultation Near Syncope, bradycardia History of Present Illness 69-year-old male with PMH for HTN, HLD, CAD, [place], stent x3 to RCA 03/14/2016, HLD, presents to the hospital with dizziness. Patient states symptoms started roughly 3 months prior and has been intermittent though last couple of days patient has had multiple episodes of severe lightheadedness almost passing out. Denies full syncopal episodes. Patient also noted to have elevated blood pressure and therefore came to the hospital. Upon presentation patient's blood pressure found to be 202/91, patient's heart rate was bradycardic at 47. Denies any chest pain, palpitations, shortness of breath. Troponin negative. CT head unremarkable. Past Medical History CAD, stent x3 to RCA HTN [place] HLD Past Surgical History Coronary angiogram s/p stent x3 to RCA 03/14/2016 Coronary angiogram showing PROJECT ASST RCA with grade 3 [id number] collaterals 12/08/2023 Family History: FH: cancer FH: coronary artery bypass surgery G8 BROTHER, Onset:60 years & older FH: heart attack G8 BROTHER, Onset:50's - 60 G8 MOTHER Family history: Cardiovascular disease G8 BROTHER, Onset:50's - 60 Ischemic heart disease G8 BROTHER Social History Denies current alcohol, tobacco, or illicit drug use Allergies: Coded Allergies: Morphine (Verified Allergy, Severe, seizure, 03/21/16) Home Meds Active Scripts Hydrocodone-Acetaminophen (Hydrocodone Bitartrate/AC 5-325 mg) 1 Tab Tab, 1 TAB PO Q6HP PRN for 5 Days, #20 TAB Prov:LAURYN BETANCUR [employer]TER 12/12/23 Isosorbide Mononitrate (Isosorbide Mononitrate Er) 30 Mg Tab, 1 TAB PO DAILY for 60 Days, #60 TAB 5 Refills Prov:LAURYN BETANCUR [employer]TER 12/12/23 Ibuprofen (Ibuprofen) 600 Mg Tab, 1 TAB PO Q6HP PRN, #30 TAB Prov:NARESH FRANKLIN PAC 12/04/23 Aspirin (Asa) 81 Mg Ch, 81 MG PO DAILY, #30 Prov:TOÑITO CORONADO MD 03/15/16 Reported Medications Enalapril Maleate (VASOTEC TABLET) 10 Mg Tb, 1 TAB PO DAILY, TAB 12/09/23 Rivaroxaban (Xarelto) 2.5 Mg Tab, 2.5 MG PO BID, TAB 12/09/23 Nifedipine (Nifedipine Er) 90 Mg Tab, 90 MG PO DAILY, TAB 12/09/23 Metoprolol Tartrate (Metoprolol Tartrate) 25 Mg Tab, 25 MG PO BID, MG 12/09/23 Current Medications Current Medications Medications (Trade) Dose Ordered Sig/Spring Route PRN Reason Start Time Stop Time Status Last Admin Metoprolol Tartrate (Lopressor Tablet) 50 mg BID PO 12/28/24 22:00 12/28/24 20:55 Amlodipine Besylate (Norvasc Tablet) 5 mg DAILY PO 12/29/24 10:00 Hydralazine HCl (Apresoline Injection) 10 mg Q6HP PRN IV SBP>150 12/28/24 20:00 12/29/24 02:19 Atorvastatin Calcium (Lipitor) 20 mg HS PO 12/28/24 22:00 12/28/24 20:54 Apixaban (Eliquis) 2.5 mg BID PO 12/28/24 22:00 12/29/24 00:05 Sodium Chloride (Saline Lock Ns) 10 ml Q8HR IV 12/28/24 22:00 12/29/24 05:12 Acetaminophen/ Hydrocodone Bitart ([place] 5/325MG Tab) 1 tab Q4HP PRN PO MODERATE PAIN (4-6 PAIN SCALE) 12/28/24 20:00 12/28/24 20:53 Ondansetron HCl (Zofran) 4 mg Q4HP PRN IV NAUSEA / VOMITING 12/28/24 20:00 Docusate Sodium (Colace Capsule) 100 mg BIDPRN PRN PO FOR CONSTIPATION 12/28/24 20:00 Acetaminophen (Tylenol Tablet) 650 mg Q6HP PRN PO PAIN SCALE 1-3 OR TEMP>100.4 12/28/24 20:00 Ceftriaxone Sodium 50 ml @ 100 mls/hr DAILY@09 IV 12/29/24 09:00 Nitroglycerin (Ntrostat Sublingual) 0.4 mg Q5MINP PRN SL FOR CHEST PAIN 12/28/24 22:45 Morphine Sulfate 2 mg Q30M PRN IV FOR CHEST PAIN 12/28/24 22:45 Hold Review of Systems Constitutional: No: Fever, Chills, Sweats, Weakness, Malaise, Other Eyes: No: Pain, Vision change, Conjunctivae inflammation, Eyelid inflammation, Other, Redness ENT: No: Ear pain, Ear discharge, Nose pain, Nose discharge, Nose congestion, Mouth pain, Mouth swelling, Throat pain, Throat swelling, Other Respiratory: No: Cough, Dry, Shortness of breath, SOB with exertion, Wheezing, Hemoptysis, Pleuritic Pain, Sputum, Wheezing, Other Cardiovascular: ; No: Chest Pain Palpitations, Orthopnea, Paroxysmal Noc. Dyspnea, Edema, Lt Headedness, Other Gastrointestinal: No: Nausea, Vomiting, Abdominal Pain, Diarrhea, Constipation, Melena, Hematochezia, Other Genitourinary: No Dysuria, No Frequency, No Incontinence, No Hematuria, No Retention, No Other Musculoskeletal: neck pain; No: other, shoulder pain, arm pain, back pain, hand pain, leg pain, foot pain Skin: No: Rash, Lesions, Jaundice, Bruising, Other Neurological: Other (Dizziness, headache.); No: Weakness, Numbness, Incoordination, Change in speech, Confusion, Seizures Vital Signs Vital Signs Date Time Temp Pulse Resp B/P (MAP) Pulse Ox O2 Delivery O2 Flow Rate FiO2 12/29/24 02:19 151/63 12/29/24 01:25 98.1 65 17 95 98.1 12/29/24 01:22 Room Air* 0 21 Physical Exam General appearance: Patient is well-developed, well-nourished, in no acute distress. HEENT: Exam shows: Normocephalic, atraumatic, PERRLA, EOMI Neck: Supple, no bruits Chest: Equal chest excursion bilaterally. Breath sounds normal-no rales or wheezes. Heart: Rhythm: Regular rate; no murmur or gallop Abdomen: Exam shows: Soft, nontender, nondistended Musculoskeletal: No clubbing, no cyanosis, no lower extremity edema Dermatology: Skin warm, moist. Neurological: Exam shows: Alert and oriented x4, normal speech Available prior records, labs, EKG, rhythm strips reviewed and interpreted Labs/Diagnostic Data Labs Test 12/29/24 06:22 12/28/24 17:58 12/28/24 16:30 12/28/24 16:25 Range/Units White Blood Count 10.8 4.4-10.8 10^3/uL Red Blood Count 4.55 4.5-5.90 10^6/uL Hemoglobin 13.7 13.5-17.5 g/dL Hematocrit 40.2 L 41.0-53.0 % Mean Corpuscular Volume 88.3 80.0-100.0 fL Mean Corpuscular Hemoglobin 30.2 28.0-32.0 pg Mean Corpuscular Hemoglobin Concent 34.2 32.0-36.0 g/dL Red Cell Distribution Width 13.9 11.8-14.3 % Platelet Count 260 140-450 10^3/uL Mean Platelet Volume 7.9 6.9-10.8 fL Neutrophils (%) (Auto) 75.0 37.0-80.0 % Lymphocytes (%) (Auto) 19.4 10.0-50.0 % Monocytes (%) (Auto) 5.3 0.0-12.0 % Eosinophils (%) (Auto) 0.1 0.0-7.0 % Basophils (%) (Auto) 0.2 0.0-2.0 % Neutrophils # (Auto) 8.1 1.6-8.6 10 ^3/uL Lymphocytes # (Auto) 2.1 0.4-5.4 10 ^3/uL Monocytes # (Auto) 0.6 0-1.3 10 ^3/uL Eosinophils # (Auto) 0 0-0.8 10 ^3/uL Basophils # (Auto) 0 0-0.2 10 ^3/uL Nucleated Red Blood Cells 0.1 % Sodium Level 142 136-145 mmol/L Potassium Level 3.7 3.5-5.1 mmol/L Chloride Level 111 H 98-107 mmol/L Carbon Dioxide Level 23 20-31 mmol/L Anion Gap 8 5-15 Blood Urea Nitrogen 15 9-23 mg/dL Creatinine 0.94 0.700-1.30 mg/dL Glomerular Filtration Rate Calc 89 >90 mL/min BUN/Creatinine Ratio 16.0 10.0-20.0 Serum Glucose 103 74-106 mg/dL Calcium Level 9.3 8.7-10.4 mg/dL Total Bilirubin 0.7 0.2-1.0 mg/dL Aspartate Amino Transferase (AST) 22 13-40 U/L Alanine Aminotransferase (ALT) 19 7-40 U/L Alkaline Phosphatase 83 46-116 U/L Total Protein 7.4 5.7-8.2 g/dL Albumin 4.4 3.2-4.8 g/dL Urine Color Light-yellow Yellow Urine Clarity Clear Clear Urine pH 7.0 5.0-9.0 Urine Specific [place] 1.020 1.001-1.035 Urine Protein Negative Negative Urine Ketones Negative Negative Urine Blood Negative Negative /uL Urine Nitrite Negative Negative Urine Bilirubin Negative Negative Urine Urobilinogen Normal Negative mg/dL Urine Leukocyte Esterase Negative Negative /uL Urine RBC 9 0 - 3 /hpf Urine Microscopic WBC < 1 0-3 /HPF Urine Squamous Epithelial Cells Few <5 /hpf Urine Bacteria None seen None Seen /hpf Urine Glucose Normal Normal mg/dL POC Glucose 103 70-106 mg/dl Troponin I High Sensitivity 20 </=54 ng/L Assessment Near-syncope Bradycardia CAD Hypertensive emergency Bradycardia Plan/Recommendation * Continue telemetry monitoring, check echo. * CT head negative. * Bradycardia resolved. Monitor with metoprolol, titrate as tolerated. Check TSH * Blood pressure better controlled continue current regimen. * Continue statin. Case Discussed with Dr Chowdhury. Follow up echo, continue telemetry monitoring for bradycardia. Check TSH. Critical care, time spent: 40 minutes This medical document was created using an electronic medical record system with voice recognition software and computerized dictation system. Although this document has been carefully reviewed, there might still be some phonetic and typographical errors. Occasional wrong-word or ``sound-alike�� substitutions may have occurred due to the inherent limitations of voice recognition software. These areas are purely typographical due to imperfections of the software programs and do not reflect any compromise in the patient's medical care. Please read the chart carefully and recognize, using context, where these substitutions have occurred. Thank you for allowing me to participate in the management of this patient. The treatment plan was discussed with and agreed upon by patient/family including requesting consultants and ordering of imaging/procedures. Plan discussed with: Patient NYHA Physical activity limitations: NA Date of Service: December 29, 2024 Billing Provider: ELBERT BOLTON Cardiology Common Codes: [id number] INP/OBS CARE (High), [id number] CARE 30-74 MIN ELBERT BOLTON December 29, 2024 09:43
--- NOTE | 2024-12-29 10:34 | DVHPN2 ---
Subjective 69-year-old male with a history of coronary artery disease status post 3 stents in the past, hypertension, history of DE, hyperlipidemia comes with a chief complaint of dizziness intermittently for 1 week He says he feels dizzy and lightheaded and almost passes out. Here his blood pressure was high and his heart rate was bradycardic in the low 50s and high 40s He said he had these episodes for 5 times over the last week, no chest pain Changes from previous H/P or p: Changes Eyes: No Pain, No Vision change, No Conjunctivae inflammation, No Eyelid inflammation, No Other, No Redness ENT: No Ear pain, No Ear discharge, No Nose pain, No Nose discharge, No Nose congestion, No Mouth pain, No Mouth swelling, No Throat pain, No Throat swelling, No Other Cardiovascular: No Chest Pain, No Palpitations, No Orthopnea, No Paroxysmal Noc. Dyspnea, No Edema, No Lt Headedness, No Other Respiratory: No Cough, No Dry, No Shortness of breath, No SOB with excertion, No Wheezing, No Hemoptysis, No Pleuritic Pain, No Sputum, No Other Gastrointestinal: No Nausea, No Vomiting, No Abdominal Pain, No Diarrhea, No Constipation, No Melena, No Hematochezia, No Other Genitourinary: No Dysuria, No Frequency, No Incontinence, No Hematuria, No Retention, No Other Musculoskeletal: No other, No neck pain, No shoulder pain, No arm pain, No back pain, No hand pain, No leg pain, No foot pain Skin: No Rash, No Lesions, No Jaundice, No Bruising, No Other Objective Vitals Vital Signs Date Time Temp Pulse Resp B/P (MAP) Pulse Ox O2 Delivery O2 Flow Rate FiO2 12/29/24 09:23 150/83 12/29/24 09:22 72 12/29/24 01:25 98.1 17 95 98.1 12/29/24 01:22 Room Air* 0 21 Intake/Output Intake and Output 12/29/24 07:00 Intake Total 1440 ml Output Total 900 ml Balance 540 ml Intake Oral 440 ml IV Total 1000 ml Output Urine Total 900 ml # Voids 2 General Appearance: Alert, Oriented X3, Cooperative, No acute distress Lungs: Clear to auscultation, Normal air movement Cardiovascular: Regular rate, Normal S1, Normal S2, No murmurs Abdomen: Normal bowel sounds, Soft, No tenderness Extremities: No edema Medications Current Medications Medications Dose Ordered Sig/Spring Route Start Time Stop Time Status Last Admin Dose Admin Metoprolol Tartrate 50 mg BID PO 12/28/24 22:00 12/29/24 09:22 50 MG Amlodipine Besylate 5 mg DAILY PO 12/29/24 10:00 12/29/24 09:23 5 MG Hydralazine HCl 10 mg Q6HP PRN IV 12/28/24 20:00 12/29/24 02:19 10 MG Atorvastatin Calcium 20 mg HS PO 12/28/24 22:00 12/28/24 20:54 20 MG Apixaban 2.5 mg BID PO 12/28/24 22:00 12/29/24 09:22 2.5 MG Sodium Chloride 10 ml Q8HR IV 12/28/24 22:00 12/29/24 05:12 10 ML Acetaminophen/ Hydrocodone Bitart 1 tab Q4HP PRN PO 12/28/24 20:00 12/28/24 20:53 1 TAB Ondansetron HCl 4 mg Q4HP PRN IV 12/28/24 20:00 Docusate Sodium 100 mg BIDPRN PRN PO 12/28/24 20:00 Acetaminophen 650 mg Q6HP PRN PO 12/28/24 20:00 Ceftriaxone Sodium 50 ml @ 100 mls/hr DAILY@09 IV 12/29/24 09:00 12/29/24 09:21 100 MLS/HR Nitroglycerin 0.4 mg Q5MINP PRN SL 12/28/24 22:45 Morphine Sulfate 2 mg Q30M PRN IV 12/28/24 22:45 Hold Laboratory Results Laboratory Tests 12/29/24 06:22 Chemistry Test 12/28/24 16:25 12/29/24 06:22 Calcium Level 9.5 mg/dL (8.7-10.4) 9.3 mg/dL (8.7-10.4) Albumin 4.4 g/dL (3.2-4.8) Total Protein 7.4 g/dL (5.7-8.2) LFT Test 12/29/24 06:22 Alanine Aminotransferase (ALT) 19 U/L (7-40) Alkaline Phosphatase 83 U/L (46-116) Aspartate Amino Transferase (AST) 22 U/L (13-40) Total Bilirubin 0.7 mg/dL (0.2-1.0) HgA1c, TSH Test 12/29/24 06:22 Thyroid Stimulating Hormone (TSH) Pending Urinalysis Test 12/28/24 17:58 Urine Color Light-yellow (Yellow) Urine Clarity Clear (Clear) Urine pH 7.0 (5.0-9.0) Urine Specific [place] 1.020 (1.001-1.035) Urine Protein Negative (Negative) Urine Ketones Negative (Negative) Urine Blood Negative /uL (Negative) Urine Nitrite Negative (Negative) Urine Bilirubin Negative (Negative) Urine Urobilinogen Normal mg/dL (Negative) Urine Leukocyte Esterase Negative /uL (Negative) Urine RBC 9 /hpf (0 - 3) Urine Microscopic WBC < 1 /HPF (0-3) Urine Squamous Epithelial Cells Few /hpf (<5) Urine Bacteria None seen /hpf (None Seen) Urine Glucose Normal mg/dL (Normal) Assessment/Plan Assessment/Plan Presyncope Bradycardia Coronary artery disease with a history of stents on Xarelto Hypertensive emergency Bradycardia Hypertension Mixed hyperlipidemia History of DE in the past Plan CT scan of the head was negative Order MRI of the brain Order carotid Doppler Order echocardiogram Cardiology consult Neurology consult Eliquis Monitor closely Full code Advance directives discussed for 20 minutes Not stable for transfer Plan discussed with: Patient Date of Service: December 29, 2024 Billing Provider: INDRA JOHNSTON MD Common Visit Codes: [id number] INP/OBS CARE(HIGH) INDRA JOHNSTON MD December 29, 2024 10:34
--- NOTE | 2024-12-29 14:01 | DVH ---
CAROTID DOPPLER ULTRASOUND HISTORY: syncope COMPARISON: None TECHNIQUE: Real time lambert scale, color Doppler, and spectral duplex images are obtained through the c arotid and vertebral arteries. Findings: Peak systolic velocity right internal carotid artery is 93 cm/s and right common carotid artery is 80 cm/s. Ratio is 1.2. Antegrade flow noted in right vertebral artery. Mild atherosclerotic plaque note d within the right carotid arterial system. Peak systolic velocity left internal carotid artery is 83 cm/s and left common carotid artery is 87 c m/s. Ratio is 1.0. Antegrade flow noted in left vertebral artery. Mild atherosclerotic plaque noted w ithin the left carotid arterial system. Impression: 1. No evidence of hemodynamically significant stenosis within the bilateral carotid arterial systems. 2. Antegrade flow within bilateral vertebral arteries.
[2024-12-29] MEDS ORDERED: LORazepam 0.5 MG TAB PO ONE (15:45)
[2024-12-29] MEDS: LORazepam 0.5 MG TAB PO ONE (16:27)
--- NOTE | 2024-12-29 18:14 | DVHSR ---
APPROVED REPORT EXAM: Two-dimensional and M-mode echocardiogram with Doppler and color Doppler. Blood Pressure: 151/63 mmHg INDICATION Syncope RISK FACTORS Height: 5' 10", Weight: 144 DIMENSIONS LVDd4.4 (3.8-5.7cm)LA (2D)3.8 (1.9-4.0cm)Aortic Root3.5 (2.0-3.7cm) LVDs3.0 (2.5-4.0cm)LA (MM) (1.9-4.0cm)Aortic Cusp Exc1.9 (1.5-2.0cm) EF (%) 60.0 (55-70%)Rt. Atrium4.0 (1.9-4.0cm)Asc. Aorta cm IVSd1.2 (0.7-1.1cm)RV (D) (1.8-2.4cm) PWd1.2 (0.7-1.1cm) Mitral Valve MitralMitral Stenosis E wave0.80m/sMV Mean GR.mmHg A wave1.00m/sMV Peak GR.mmHg E/A ratio0.82D MVAcm2 Aortic Valve Aortic ValveAortic Stenosis V11.10m/Fernando Mean GR.3mmHg V21.20m/Fernando Peak GR.6mmHg LVOT Diameter2.4 (1.8-2.4cm)Doppler AVA4.14cm2 Tricuspid Valve TR Velocity2.90m/s [id number] Conclusion MILD LVH AND MILD LV DIASTOLIC DYSFUNCTION LV EF IS 65% AND IS NORMAL NORMAL VALVES NO EFFUSION NORMAL RV FUNCTION AND SIZE MILD PULMONARY HYPERTENSION RVSP IS 40 MM OF HG AND HIGH NO EFFUSION
--- NOTE | 2024-12-29 19:52 | DVH ---
EXAM: MRI BRAIN HEAD WO CONTRAST INDICATION: syncope TECHNIQUE: Multiplanar, multisequence imaging of the brain without contrast. COMPARISON: None FINDINGS: [PARENCHYMA]: No acute infarct or hemorrhage. No mass effect or herniation. No abnormal susceptibilit y weighted artifact. There are moderate periventricular and centrum semiovale T2/FLAIR hyperintensiti es, which are nonspecific but most likely represent chronic microvascular ischemic change. [VENTRICLES]: No hydrocephalus. [EXTRA-AXIAL SPACES]: No extra-axial fluid collections. [FLOW VOIDS]: The flow voids are intact. [EXTRA-CRANIAL STRUCTURES]: The bony structures are intact. Visualized portions of the paranasal sinu ses and mastoid air cells are essentially clear. IMPRESSION: 1. No MR evidence of an acute intracranial abnormality. Suspected at least moderate chronic microvasc ular ischemic change.
--- NOTE | 2024-12-29 21:44 | DVHINCON2 ---
Date of service: December 29, [address] Pedroza Reason for Consultation Presyncope History of Present Illness Mr. Oneill is a 69 years old right-handed gentleman with a history of hypertension, dyslipidemia, coronary artery disease, heart attack, he came to the [facility] on with a chief complaint of dizziness. At this time, he is alert and fully oriented, he provided the following history Over the two months of time, he has spells of dizziness/lightheadedness typically when he is working on his PC, sitting, resting in the bed, but not when he was up or moving around, this does not happen every day, but sometimes he may have a few times daily, there was no associated nausea, vomiting, chest pain, vision changes, focal weakness numbness, hearing changes or ringing in the ears, he was never had similar problems previously According to ER note, the patient was blood pressure was up to 202/91, and heart rate was 47. He reports on metoprolol, enalapril and nifedipine for pressure co ntrol He was on Xarelto at home for heart attack Urinalysis, 12/28/2024: WBC: 1, urine leukocyte esterase: Negative CBC, 12/29/2024: Unremarkable CMP, 12/29/2024: Unremarkable TSH, 12/29/24: 2.32 Carotid Doppler, 12/29/2024: 1. No evidence of hemodynamically significant stenosis within the bilateral carotid arterial systems. 2. Antegrade flow within bilateral vertebral arteries CT head, 12/29/2024: No MR evidence of an acute intracranial abnormality. Suspected at least moderate chronic microvascular ischemic change. Past Medical History Hypertension, dyslipidemia, coronary artery disease, heart attack Past Surgical History PTCA Family History: FH: cancer FH: coronary artery bypass surgery G8 BROTHER, Onset:60 years & older FH: heart attack G8 BROTHER, Onset:50's - 60 G8 MOTHER Family history: Cardiovascular disease G8 BROTHER, Onset:50's - 60 Ischemic heart disease G8 BROTHER Family History Heart disease, cancer Social History He was a tobacco smoker, he was no history of drug or alcohol abuse Allergies: Coded Allergies: Morphine (Verified Allergy, Severe, seizure, 03/21/16) Home Meds Active Scripts Hydrocodone-Acetaminophen (Hydrocodone Bitartrate/AC 5-325 mg) 1 Tab Tab, 1 TAB PO Q6HP PRN for 5 Days, #20 TAB Prov:LAURYN BETANCUR ONLINE MARKETING SPECIALIST 12/12/23 Isosorbide Mononitrate (Isosorbide Mononitrate Er) 30 Mg Tab, 1 TAB PO DAILY for 60 Days, #60 TAB 5 Refills Prov:LAURYN BETANCUR ONLINE MARKETING SPECIALIST 12/12/23 Ibuprofen (Ibuprofen) 600 Mg Tab, 1 TAB PO Q6HP PRN, #30 TAB Prov:NARESH FRANKLIN PAC 12/04/23 Aspirin (Asa) 81 Mg Ch, 81 MG PO DAILY, #30 Prov:TOÑITO CORONADO MD 03/15/16 Reported Medications Enalapril Maleate (VASOTEC TABLET) 10 Mg Tb, 1 TAB PO DAILY, TAB 12/09/23 Rivaroxaban (Xarelto) 2.5 Mg Tab, 2.5 MG PO BID, TAB 12/09/23 Nifedipine (Nifedipine Er) 90 Mg Tab, 90 MG PO DAILY, TAB 12/09/23 Metoprolol Tartrate (Metoprolol Tartrate) 25 Mg Tab, 25 MG PO BID, MG 12/09/23 Current Medications Current Medications Medications (Trade) Dose Ordered Sig/Spring Route PRN Reason Start Time Stop Time Status Last Admin Metoprolol Tartrate (Lopressor Tablet) 50 mg BID PO 12/28/24 22:00 12/29/24 21:35 Amlodipine Besylate (Norvasc Tablet) 5 mg DAILY PO 12/29/24 10:00 12/29/24 09:23 Atorvastatin Calcium (Lipitor) 20 mg HS PO 12/28/24 22:00 12/29/24 21:34 Apixaban (Eliquis) 2.5 mg BID PO 12/28/24 22:00 12/29/24 21:34 Sodium Chloride (Saline Lock Ns) 10 ml Q8HR IV 12/28/24 22:00 12/29/24 16:28 Ceftriaxone Sodium 50 ml @ 100 mls/hr DAILY@09 IV 12/29/24 09:00 12/29/24 10:34 DC 12/29/24 09:21 Nitroglycerin (Ntrostat Sublingual) 0.4 mg Q5MINP PRN SL FOR CHEST PAIN 12/28/24 22:45 Morphine Sulfate 2 mg Q30M PRN IV FOR CHEST PAIN 12/28/24 22:45 Hold Review of Systems As above, the other systems are negative Vital Signs Vital Signs Date Time Temp Pulse Resp B/P (MAP) Pulse Ox O2 Delivery O2 Flow Rate FiO2 12/29/24 21:35 68 181/79 12/29/24 17:00 98.4 18 98 98.4 12/29/24 08:00 Room Air* 0 21 Physical Exam GENERAL EXAM: General: the patient is well developed and nourished. No acute distress. HEENT: Normocephalic, neck is supple, no carotid bruits. No mass RESPIRATORY: Normal respiratory effort with symmetrical lung expansion. Lungs clear to auscultation. CARDIOVASCULAR: Regular rate and rhythm with no murmurs. S1, S2. ABDOMEN: Soft, nontender, normal bowel sound NEUROLOGICAL: MENTAL STATUS: Awake and alert. Oriented to person, place, time and general circumstances. Able to give personal history SPEECH, LANGUAGE, HIGHER CORTICAL FUNCTION: no aphasia or dysathria. CRANIAL NERVES: #2: Intact visual walker to confrontation. The optic discs were sharp #3,4,6: Pupils are equal, round and reactive. EOMs full and conjugate. No nystagmus. #5: Facial sensation intact in all three divisions bilaterally. Mandibular strength intact. #7: Facial muscles symmetrical and strength intact. #8: Hearing grossly normal to voice. #9,10: Uvula and soft palate rise in the midline. Swallow and voice are normal. #11: Trapezius and sternomastoid strength intact bilaterally. #12: Tongue midline. No fasciculations or atrophy. SENSATION: Sensation to touch and pinprick is normal. MOTOR: Normal tone in the upper and lower extremity. Normal muscle bulk. No fasciculations. No abnormal movements or posturing. Muscle strength of the major groups in the upper extremities is 5/5. Muscle strength of the major groups in the lower extremities is 5/5. REFLEXES: Deep tendon reflexes normal and symmetrical. No pathological reflexes. CEREBELLAR/COORDINATION: Finger to nose and heel to [place] are normal bilaterally. GAIT/STATION: deferred. Labs/Diagnostic Data Labs Test 12/29/24 06:22 12/28/24 17:58 12/28/24 16:30 12/28/24 16:25 Range/Units White Blood Count 10.8 4.4-10.8 10^3/uL Red Blood Count 4.55 4.5-5.90 10^6/uL Hemoglobin 13.7 13.5-17.5 g/dL Hematocrit 40.2 L 41.0-53.0 % Mean Corpuscular Volume 88.3 80.0-100.0 fL Mean Corpuscular Hemoglobin 30.2 28.0-32.0 pg Mean Corpuscular Hemoglobin Concent 34.2 32.0-36.0 g/dL Red Cell Distribution Width 13.9 11.8-14.3 % Platelet Count 260 140-450 10^3/uL Mean Platelet Volume 7.9 6.9-10.8 fL Neutrophils (%) (Auto) 75.0 37.0-80.0 % Lymphocytes (%) (Auto) 19.4 10.0-50.0 % Monocytes (%) (Auto) 5.3 0.0-12.0 % Eosinophils (%) (Auto) 0.1 0.0-7.0 % Basophils (%) (Auto) 0.2 0.0-2.0 % Neutrophils # (Auto) 8.1 1.6-8.6 10 ^3/uL Lymphocytes # (Auto) 2.1 0.4-5.4 10 ^3/uL Monocytes # (Auto) 0.6 0-1.3 10 ^3/uL Eosinophils # (Auto) 0 0-0.8 10 ^3/uL Basophils # (Auto) 0 0-0.2 10 ^3/uL Nucleated Red Blood Cells 0.1 % Sodium Level 142 136-145 mmol/L Potassium Level 3.7 3.5-5.1 mmol/L Chloride Level 111 H 98-107 mmol/L Carbon Dioxide Level 23 20-31 mmol/L Anion Gap 8 5-15 Blood Urea Nitrogen 15 9-23 mg/dL Creatinine 0.94 0.700-1.30 mg/dL Glomerular Filtration Rate Calc 89 >90 mL/min BUN/Creatinine Ratio 16.0 10.0-20.0 Serum Glucose 103 74-106 mg/dL Calcium Level 9.3 8.7-10.4 mg/dL Total Bilirubin 0.7 0.2-1.0 mg/dL Aspartate Amino Transferase (AST) 22 13-40 U/L Alanine Aminotransferase (ALT) 19 7-40 U/L Alkaline Phosphatase 83 46-116 U/L Total Protein 7.4 5.7-8.2 g/dL Albumin 4.4 3.2-4.8 g/dL Thyroid Stimulating Hormone (TSH) 2.32 0.55-4.78 uIU/mL Urine Color Light-yellow Yellow Urine Clarity Clear Clear Urine pH 7.0 5.0-9.0 Urine Specific [place] 1.020 1.001-1.035 Urine Protein Negative Negative Urine Ketones Negative Negative Urine Blood Negative Negative /uL Urine Nitrite Negative Negative Urine Bilirubin Negative Negative Urine Urobilinogen Normal Negative mg/dL Urine Leukocyte Esterase Negative Negative /uL Urine RBC 9 0 - 3 /hpf Urine Microscopic WBC < 1 0-3 /HPF Urine Squamous Epithelial Cells Few <5 /hpf Urine Bacteria None seen None Seen /hpf Urine Glucose Normal Normal mg/dL POC Glucose 103 70-106 mg/dl Troponin I High Sensitivity 20 </=54 ng/L Assessment Spells of dizziness, etiology unclear ? Secondary to bradycardia Presyncopal event TIA, less likely Partial simple seizure, less likely Plan/Recommendation Monitoring Supportive treatment Telemetry EEG MR brain scan Syncope precautions Cardiology evaluation More recommendation per clinical course Progress: Poor This medical document was created using an electronic medical record system with [employer] dictation system. Although this document has been carefully reviewed, there may still be some phonetic and typographical errors. These areas are purely typographical due to imperfections of the software programs, and do not reflect any compromise in the patient's medical care. Plan discussed with: Patient, Other OTTONIEL LEE MD December 29, 2024 21:44
--- NOTE | 2024-12-29 23:24 | DVHINCON2 ---
Date Seen: December 29, 2024 Referring Physician Sabrina Reason for Consultation Near Syncope, bradycardia History of Present Illness This is a 69-year-old male with a PMH of HTN, HLD, CAD, AL, stent x3 to RCA 03/14/2016, HLD, presents to the ED with complaints of dizziness. Patient states symptoms started roughly 3 months prior and has been intermittent though last couple of days patient has had multiple episodes of severe lightheadedness almost passing out. Denies full syncopal episodes. Patient also noted to have elevated blood pressure and therefore came to the hospital. Upon presentation patient's blood pressure found to be 202/91, patient's heart rate was bradycardic at 47. Denies any chest pain, palpitations, shortness of breath. Troponin negative. CT head is unremarkable. Patient was admitted to the hospital. I am asked to consult on this patient. Past Medical History CAD, stent x3 to RCA HTN AL HLD Past Surgical History Coronary angiogram s/p stent x3 to RCA 03/14/2016 Coronary angiogram showing [employer] RCA with grade 3 [id number] collaterals 12/08/2023 Family History: FH: cancer FH: coronary artery bypass surgery G8 BROTHER, Onset:60 years & older FH: heart attack G8 BROTHER, Onset:50's - 60 G8 MOTHER Family history: Cardiovascular disease G8 BROTHER, Onset:50's - 60 Ischemic heart disease G8 BROTHER Allergies: Coded Allergies: Morphine (Verified Allergy, Severe, seizure, 03/21/16) Home Meds Active Scripts Hydrocodone-Acetaminophen (Hydrocodone Bitartrate/AC 5-325 mg) 1 Tab Tab, 1 TAB PO Q6HP PRN for 5 Days, #20 TAB Prov:LAURYN BETANCUR DISINTEGRATOR 12/12/23 Isosorbide Mononitrate (Isosorbide Mononitrate Er) 30 Mg Tab, 1 TAB PO DAILY for 60 Days, #60 TAB 5 Refills Prov:LAURYN BETANCUR NP 12/12/23 Ibuprofen (Ibuprofen) 600 Mg Tab, 1 TAB PO Q6HP PRN, #30 TAB Prov:NARESH FRANKLIN PAC 12/04/23 Aspirin (Asa) 81 Mg Ch, 81 MG PO DAILY, #30 Prov:TOÑITO CORONADO MD 03/15/16 Reported Medications Enalapril Maleate (VASOTEC TABLET) 10 Mg Tb, 1 TAB PO DAILY, TAB 12/09/23 Rivaroxaban (Xarelto) 2.5 Mg Tab, 2.5 MG PO BID, TAB 12/09/23 Nifedipine (Nifedipine Er) 90 Mg Tab, 90 MG PO DAILY, TAB 12/09/23 Metoprolol Tartrate (Metoprolol Tartrate) 25 Mg Tab, 25 MG PO BID, MG 12/09/23 Current Medications Current Medications Medications (Trade) Dose Ordered Sig/Spring Route PRN Reason Start Time Stop Time Status Last Admin Metoprolol Tartrate (Lopressor Tablet) 50 mg BID PO 12/28/24 22:00 12/29/24 09:22 Amlodipine Besylate (Norvasc Tablet) 5 mg DAILY PO 12/29/24 10:00 12/29/24 09:23 Hydralazine HCl (Apresoline Injection) 10 mg Q6HP PRN IV SBP>150 12/28/24 20:00 12/29/24 02:19 Atorvastatin Calcium (Lipitor) 20 mg HS PO 12/28/24 22:00 12/28/24 20:54 Apixaban (Eliquis) 2.5 mg BID PO 12/28/24 22:00 12/29/24 09:22 Sodium Chloride (Saline Lock Ns) 10 ml Q8HR IV 12/28/24 22:00 12/29/24 05:12 Acetaminophen/ Hydrocodone Bitart (Duck 5/325MG Tab) 1 tab Q4HP PRN PO MODERATE PAIN (4-6 PAIN SCALE) 12/28/24 20:00 12/28/24 20:53 Ondansetron HCl (Zofran) 4 mg Q4HP PRN IV NAUSEA / VOMITING 12/28/24 20:00 Docusate Sodium (Colace Capsule) 100 mg BIDPRN PRN PO FOR CONSTIPATION 12/28/24 20:00 Acetaminophen (Tylenol Tablet) 650 mg Q6HP PRN PO PAIN SCALE 1-3 OR TEMP>100.4 12/28/24 20:00 Ceftriaxone Sodium 50 ml @ 100 mls/hr DAILY@09 IV 12/29/24 09:00 12/29/24 10:34 DC 12/29/24 09:21 Nitroglycerin (Ntrostat Sublingual) 0.4 mg Q5MINP PRN SL FOR CHEST PAIN 12/28/24 22:45 Morphine Sulfate 2 mg Q30M PRN IV FOR CHEST PAIN 12/28/24 22:45 Hold Review of Systems Constitutional: No: Fever, Chills, Sweats, Weakness, Malaise, Other Eyes: No: Pain, Vision change, Conjunctivae inflammation, Eyelid inflammation, Other, Redness ENT: No: Ear pain, Ear discharge, Nose pain, Nose discharge, Nose congestion, Mouth pain, Mouth swelling, Throat pain, Throat swelling, Other Respiratory: No: Cough, Dry, Shortness of breath, SOB with exertion, Wheezing, Hemoptysis, Pleuritic Pain, Sputum, Wheezing, Other Cardiovascular: ; No: Chest Pain Palpitations, Orthopnea, Paroxysmal Noc. Dyspnea, Edema, Lt Headedness, Other Gastrointestinal: No: Nausea, Vomiting, Abdominal Pain, Diarrhea, Constipation, Melena, Hematochezia, Other Genitourinary: No Dysuria, No Frequency, No Incontinence, No Hematuria, No Retention, No Other Musculoskeletal: neck pain; No: other, shoulder pain, arm pain, back pain, hand pain, leg pain, foot pain Skin: No: Rash, Lesions, Jaundice, Bruising, Other Neurological: Other (Dizziness, headache.); No: Weakness, Numbness, Incoordination, Change in speech, Confusion, Seizures Vital Signs Vital Signs Date Time Temp Pulse Resp B/P (MAP) Pulse Ox O2 Delivery O2 Flow Rate FiO2 12/29/24 09:23 150/83 12/29/24 09:22 72 12/29/24 08:00 18 97 Room Air* 0 21 12/29/24 01:25 98.1 98.1 Physical Exam GENERAL: Alert and oriented x 3. No acute distress. EYES: PERRL, EOMI. Anicteric. HENT: Moist mucous membranes. LUNGS: Clear to auscultation bilaterally. CARDIOVASCULAR: Regular rate and rhythm. ABDOMEN: Soft, nontender and nondistended. EXTREMITIES: No edema. NEUROLOGIC: No focal neurological deficits. SKIN: Warm, dry. Labs/Diagnostic Data Labs Test 12/29/24 06:22 12/28/24 17:58 12/28/24 16:30 12/28/24 16:25 Range/Units White Blood Count 10.8 4.4-10.8 10^3/uL Red Blood Count 4.55 4.5-5.90 10^6/uL Hemoglobin 13.7 13.5-17.5 g/dL Hematocrit 40.2 L 41.0-53.0 % Mean Corpuscular Volume 88.3 80.0-100.0 fL Mean Corpuscular Hemoglobin 30.2 28.0-32.0 pg Mean Corpuscular Hemoglobin Concent 34.2 32.0-36.0 g/dL Red Cell Distribution Width 13.9 11.8-14.3 % Platelet Count 260 140-450 10^3/uL Mean Platelet Volume 7.9 6.9-10.8 fL Neutrophils (%) (Auto) 75.0 37.0-80.0 % Lymphocytes (%) (Auto) 19.4 10.0-50.0 % Monocytes (%) (Auto) 5.3 0.0-12.0 % Eosinophils (%) (Auto) 0.1 0.0-7.0 % Basophils (%) (Auto) 0.2 0.0-2.0 % Neutrophils # (Auto) 8.1 1.6-8.6 10 ^3/uL Lymphocytes # (Auto) 2.1 0.4-5.4 10 ^3/uL Monocytes # (Auto) 0.6 0-1.3 10 ^3/uL Eosinophils # (Auto) 0 0-0.8 10 ^3/uL Basophils # (Auto) 0 0-0.2 10 ^3/uL Nucleated Red Blood Cells 0.1 % Sodium Level 142 136-145 mmol/L Potassium Level 3.7 3.5-5.1 mmol/L Chloride Level 111 H 98-107 mmol/L Carbon Dioxide Level 23 20-31 mmol/L Anion Gap 8 5-15 Blood Urea Nitrogen 15 9-23 mg/dL Creatinine 0.94 0.700-1.30 mg/dL Glomerular Filtration Rate Calc 89 >90 mL/min BUN/Creatinine Ratio 16.0 10.0-20.0 Serum Glucose 103 74-106 mg/dL Calcium Level 9.3 8.7-10.4 mg/dL Total Bilirubin 0.7 0.2-1.0 mg/dL Aspartate Amino Transferase (AST) 22 13-40 U/L Alanine Aminotransferase (ALT) 19 7-40 U/L Alkaline Phosphatase 83 46-116 U/L Total Protein 7.4 5.7-8.2 g/dL Albumin 4.4 3.2-4.8 g/dL Thyroid Stimulating Hormone (TSH) 2.32 0.55-4.78 uIU/mL Urine Color Light-yellow Yellow Urine Clarity Clear Clear Urine pH 7.0 5.0-9.0 Urine Specific [place] 1.020 1.001-1.035 Urine Protein Negative Negative Urine Ketones Negative Negative Urine Blood Negative Negative /uL Urine Nitrite Negative Negative Urine Bilirubin Negative Negative Urine Urobilinogen Normal Negative mg/dL Urine Leukocyte Esterase Negative Negative /uL Urine RBC 9 0 - 3 /hpf Urine Microscopic WBC < 1 0-3 /HPF Urine Squamous Epithelial Cells Few <5 /hpf Urine Bacteria None seen None Seen /hpf Urine Glucose Normal Normal mg/dL POC Glucose 103 70-106 mg/dl Troponin I High Sensitivity 20 </=54 ng/L Assessment Near-syncope. Bradycardia. CAD. Hypertensive emergency. Bradycardia. Plan/Recommendation I agree with your ongoing assessment and care of plan. Patient has been seen by Juan Huggins NP on my behalf, him and I discussed the plan with the patient. Continue telemetry monitoring. Check echo. Bradycardia resolved. Monitor with metoprolol, titrate as tolerated. Check TSH Blood pressure better controlled continue current regimen. Continue statin. Additional plan as per the hospital course. Plan discussed with: Patient NYHA Physical activity limitations: NA Date of Service: December 29, 2024 Billing Provider: ODILON AMAYA MD Cardiology Common Codes: [id number] INP/OBS CARE (High) ODILON AMAYA MD December 29, 2024 12:54
[2024-12-30] VITALS (8 sets, daily range): BP systolic 154–177; BP diastolic 71–80; PULSE 59–87; RESP 14–18; TEMP 97.6–98.1; O2SAT 95–99
[2024-12-30 07:27] LABS: Cholesterol 131 mg/dL (< 200); LDL Cholesterol 79 mg/dL (< 100); Triglycerides 80 mg/dL (< 150)
[2024-12-30 07:30] LABS: HDL Cholesterol 36 mg/dL (40-59)
[2024-12-30] MEDS: VALSARTAN 80 MG TAB PO SCH (09:07)
[2024-12-30] MEDS: CARVEDILOL 3.125 MG TAB PO SCH (09:07)
[2024-12-30] MEDS: amLODIPine BESYLATE 5 MG TAB PO SCH (09:08)
--- NOTE | 2024-12-30 10:15 | ECG ---
[facility] Test Date: 2024-12-29 Test Time: 09:37:19 Pat Name: KANWAL MARQUEZ Department: Respiratoy Room: 0222T A Gender: M Road Repairer: MAYANK : 1955 Requested By: ELBERT BOLTON Order Number: [id number] Reading MD: Jevon Yi Measurements Intervals [place] Rate: 62 P: 82 MS: 156 QRS: 3 QRSD: 102 T: -78 QT: 410 QTc: 417 Interpretive Statements Sinus rhythm Atrial premature complex Consider right atrial enlargement Probable left ventricular hypertrophy Abnormal T, consider ischemia, inferior leads Electronically Signed On 01-02-2025 11:57:00 PDT by Jevon Yi Please click the below link to view image of tracing.
--- NOTE | 2024-12-30 11:02 | DVHPN2 ---
Consult Progress Note Subjective Patient reports: No new complaints Objective vital signs Vital Sign Date Time Temp Pulse Resp B/P (MAP) Pulse Ox O2 Delivery O2 Flow Rate FiO2 12/30/24 09:08 167/79 12/30/24 09:07 62 12/30/24 09:00 97.6 16 97 97.6 12/30/24 08:00 Room Air* 0 21 Total Intake and Output 12/29/24 12/29/24 12/30/24 15:00 23:00 07:00 Intake Total 224 ml 480 ml Output Total 350 ml Balance 224 ml 130 ml medications Current Medications Medications Dose Ordered Sig/Spring Route Start Time Stop Time Status Last Admin Dose Admin Hydralazine HCl 10 mg Q6HP PRN IV 12/28/24 20:00 12/29/24 23:55 10 MG Atorvastatin Calcium 20 mg HS PO 12/28/24 22:00 12/29/24 21:34 20 MG Apixaban 2.5 mg BID PO 12/28/24 22:00 12/30/24 09:07 2.5 MG Sodium Chloride 10 ml Q8HR IV 12/28/24 22:00 12/30/24 05:57 10 ML Acetaminophen/ Hydrocodone Bitart 1 tab Q4HP PRN PO 12/28/24 20:00 12/28/24 20:53 1 TAB Ondansetron HCl 4 mg Q4HP PRN IV 12/28/24 20:00 Docusate Sodium 100 mg BIDPRN PRN PO 12/28/24 20:00 Acetaminophen 650 mg Q6HP PRN PO 12/28/24 20:00 Nitroglycerin 0.4 mg Q5MINP PRN SL 12/28/24 22:45 Morphine Sulfate 2 mg Q30M PRN IV 12/28/24 22:45 Hold Amlodipine Besylate 10 mg DAILY PO 12/30/24 10:00 12/30/24 09:08 10 MG Valsartan 160 mg DAILY PO 12/30/24 10:00 12/30/24 09:07 160 MG Carvedilol 3.125 mg Q12HR PO 12/30/24 10:00 12/30/24 09:07 3.125 MG Examination: CVS:Abnormal (Continues to have elevated blood pressure with episodes of bradycardia overnight.) laboratory and microbiology Laboratory Tests 12/29/24 06:22 Test 12/29/24 06:22 Range/Units Serum Glucose 103 74-106 mg/dL Problem List/Assessment/Plan Problem List/Assessment/Plan Assessment Near-syncope Bradycardia CAD Hypertensive emergency Bradycardia Plan/Recommendation * Continue telemetry monitoring, check echo. * CT head negative. * Bradycardia resolved. Monitor with metoprolol, titrate as tolerated. Check TSH * Blood pressure better controlled continue current regimen. * Continue statin. * Neurology on board, MRI negative. * Outpatient follow-up for event monitoring. Case Discussed with Dr Chowdhury. Echo with preserved LV and RV function, no significant valvular structural abnormalities, RVSP 40 mmHg. Normal TSH. Patient's blood pressure continues to be obese elevated, amlodipine increased to 10 mg daily, valsartan added. If BP and HR improve, no further cardiac workup indicated at this time. Patient to follow up outpatient for event monitoring. This medical document was created using an electronic medical record system with voice recognition software and computerized dictation system. Although this document has been carefully reviewed, there might still be some phonetic and typographical errors. Occasional wrong-word or ``sound-alike�� substitutions may have occurred due to the inherent limitations of voice recognition software. These areas are purely typographical due to imperfections of the software programs and do not reflect any compromise in the patient's medical care. Please read the chart carefully and recognize, using context, where these substitutions have occurred. Thank you for allowing me to participate in the management of this patient. The treatment plan was discussed with and agreed upon by patient/family including requesting consultants and ordering of imaging/procedures. Plan discussed with: Patient Date of Service: December 30, 2024 Billing Provider: ELBERT BOLTON Common Visit Codes: [id number] INP/OBS CARE(HIGH) ELBERT BOLTON December 30, 2024 11:02
--- NOTE | 2024-12-30 11:37 | DVHPN2 ---
Subjective He says he feels better Changes from previous H/P or p: Changes Eyes: No Pain, No Vision change, No Conjunctivae inflammation, No Eyelid inflammation, No Other, No Redness ENT: No Ear pain, No Ear discharge, No Nose pain, No Nose discharge, No Nose congestion, No Mouth pain, No Mouth swelling, No Throat pain, No Throat swelling, No Other Cardiovascular: No Chest Pain, No Palpitations, No Orthopnea, No Paroxysmal Noc. Dyspnea, No Edema, No Lt Headedness, No Other Respiratory: No Cough, No Dry, No Shortness of breath, No SOB with excertion, No Wheezing, No Hemoptysis, No Pleuritic Pain, No Sputum, No Other Gastrointestinal: No Nausea, No Vomiting, No Abdominal Pain, No Diarrhea, No Constipation, No Melena, No Hematochezia, No Other Genitourinary: No Dysuria, No Frequency, No Incontinence, No Hematuria, No Retention, No Other Musculoskeletal: No other, No neck pain, No shoulder pain, No arm pain, No back pain, No hand pain, No leg pain, No foot pain Skin: No Rash, No Lesions, No Jaundice, No Bruising, No Other Objective Vitals Vital Signs Date Time Temp Pulse Resp B/P (MAP) Pulse Ox O2 Delivery O2 Flow Rate FiO2 12/30/24 09:08 167/79 12/30/24 09:07 62 12/30/24 09:00 97.6 16 97 97.6 12/30/24 08:00 Room Air* 0 21 Intake/Output Intake and Output 12/30/24 07:00 Intake Total 704 ml Output Total 350 ml Balance 354 ml Intake Oral 704 ml Output Urine Total 350 ml # Voids 2 General Appearance: Alert, Oriented X3, Cooperative, No acute distress Lungs: Clear to auscultation, Normal air movement Cardiovascular: Regular rate, Normal S1, Normal S2, No murmurs Abdomen: Normal bowel sounds, Soft, No tenderness Extremities: No edema Medications Current Medications Medications Dose Ordered Sig/Spring Route Start Time Stop Time Status Last Admin Dose Admin Hydralazine HCl 10 mg Q6HP PRN IV 12/28/24 20:00 12/29/24 23:55 10 MG Atorvastatin Calcium 20 mg HS PO 12/28/24 22:00 12/29/24 21:34 20 MG Apixaban 2.5 mg BID PO 12/28/24 22:00 12/30/24 09:07 2.5 MG Sodium Chloride 10 ml Q8HR IV 12/28/24 22:00 12/30/24 05:57 10 ML Acetaminophen/ Hydrocodone Bitart 1 tab Q4HP PRN PO 12/28/24 20:00 12/28/24 20:53 1 TAB Ondansetron HCl 4 mg Q4HP PRN IV 12/28/24 20:00 Docusate Sodium 100 mg BIDPRN PRN PO 12/28/24 20:00 Acetaminophen 650 mg Q6HP PRN PO 12/28/24 20:00 Nitroglycerin 0.4 mg Q5MINP PRN SL 12/28/24 22:45 Morphine Sulfate 2 mg Q30M PRN IV 12/28/24 22:45 Hold Amlodipine Besylate 10 mg DAILY PO 12/30/24 10:00 12/30/24 09:08 10 MG Valsartan 160 mg DAILY PO 12/30/24 10:00 12/30/24 09:07 160 MG Carvedilol 3.125 mg Q12HR PO 12/30/24 10:00 12/30/24 09:07 3.125 MG Laboratory Results Laboratory Tests 12/29/24 06:22 Lipid panel Test 12/30/24 06:01 Cholesterol Level 131 mg/dL (< 200) HDL Cholesterol 36 mg/dL (40-59) L Triglycerides Level 80 mg/dL (< 150) Urinalysis Test 12/28/24 17:58 Urine Color Light-yellow (Yellow) Urine Clarity Clear (Clear) Urine pH 7.0 (5.0-9.0) Urine Specific [place] 1.020 (1.001-1.035) Urine Protein Negative (Negative) Urine Ketones Negative (Negative) Urine Blood Negative /uL (Negative) Urine Nitrite Negative (Negative) Urine Bilirubin Negative (Negative) Urine Urobilinogen Normal mg/dL (Negative) Urine Leukocyte Esterase Negative /uL (Negative) Urine RBC 9 /hpf (0 - 3) Urine Microscopic WBC < 1 /HPF (0-3) Urine Squamous Epithelial Cells Few /hpf (<5) Urine Bacteria None seen /hpf (None Seen) Urine Glucose Normal mg/dL (Normal) Assessment/Plan Assessment/Plan Presyncope Bradycardia Coronary artery disease with a history of stents on Xarelto Hypertensive emergency Bradycardia Hypertension Mixed hyperlipidemia History of [place] in the past Plan CT scan of the head was negative Order MRI of the brain Order carotid Doppler Order echocardiogram Cardiology consult Neurology consult Eliquis Monitor closely Full code Advance directives discussed for 20 minutes Not stable for transfer 12/30/2024: MRI and carotid Doppler are normal Echocardiogram is normal The patient is feeling better Blood pressure was high : Increase amlodipine to 10 mg daily Continue Eliquis Valsartan 160 mg daily Cardiology recommended change metoprolol to Coreg 3.125 mg twice a day Lipitor Watch in the hospital 1 more day Out of bed as tolerated Plan discussed with: Patient Date of Service: December 30, 2024 Billing Provider: INDRA JOHNSTON MD Common Visit Codes: [id number] INP/OBS CARE(MOD) INDRA JOHNSTON MD December 30, 2024 11:37
--- NOTE | 2024-12-30 21:38 | DVHPN2 ---
Consult Progress Note Subjective Patient reports: No new complaints Other Systems: Patient was seen and evaluated in follow up. Patient continues to have elevated blood pressure with episodes of bradycardia overnight. Telemetry reviewed. Objective vital signs Vital Sign Date Time Temp Pulse Resp B/P (MAP) Pulse Ox O2 Delivery O2 Flow Rate FiO2 12/30/24 13:09 169/80 12/30/24 10:07 61 12/30/24 09:00 97.6 16 97 97.6 12/30/24 08:00 Room Air* 0 21 Total Intake and Output 12/29/24 12/29/24 12/30/24 15:00 23:00 07:00 Intake Total 224 ml 480 ml Output Total 350 ml Balance 224 ml 130 ml medications Current Medications Medications Dose Ordered Sig/Spring Route Start Time Stop Time Status Last Admin Dose Admin Hydralazine HCl 10 mg Q6HP PRN IV 12/28/24 20:00 12/30/24 13:09 10 MG Atorvastatin Calcium 20 mg HS PO 12/28/24 22:00 12/29/24 21:34 20 MG Apixaban 2.5 mg BID PO 12/28/24 22:00 12/30/24 09:07 2.5 MG Sodium Chloride 10 ml Q8HR IV 12/28/24 22:00 12/30/24 05:57 10 ML Acetaminophen/ Hydrocodone Bitart 1 tab Q4HP PRN PO 12/28/24 20:00 12/28/24 20:53 1 TAB Ondansetron HCl 4 mg Q4HP PRN IV 12/28/24 20:00 Docusate Sodium 100 mg BIDPRN PRN PO 12/28/24 20:00 Acetaminophen 650 mg Q6HP PRN PO 12/28/24 20:00 Nitroglycerin 0.4 mg Q5MINP PRN SL 12/28/24 22:45 Morphine Sulfate 2 mg Q30M PRN IV 12/28/24 22:45 Hold Amlodipine Besylate 10 mg DAILY PO 12/30/24 10:00 12/30/24 09:08 10 MG Valsartan 160 mg DAILY PO 12/30/24 10:00 12/30/24 09:07 160 MG Carvedilol 3.125 mg Q12HR PO 12/30/24 10:00 12/30/24 09:07 3.125 MG Examination: GENERAL:Normal, LUNGS:Normal, CVS:Abnormal, ABDOMEN:Normal laboratory and microbiology Laboratory Tests 12/29/24 06:22 Test 12/29/24 06:22 Range/Units Serum Glucose 103 74-106 mg/dL Problem List/Assessment/Plan Problem List/Assessment/Plan Assessment Near-syncope. Bradycardia. CAD. Hypertensive emergency. Bradycardia. Plan/Recommendation Continued all current supportive medical care. Patient has been seen by Juan Huggins NP on my behalf, him and I discussed the plan with the patient. Continue telemetry monitoring. Metoprolol titrate as tolerated. Continue statin. Echo with preserved LV and RV function, no significant valvular structural abnormalities, RVSP 40 mmHg. Normal TSH. Patient's blood pressure continues to be elevated, amlodipine increased to 10 mg daily, valsartan added. Patient to follow up outpatient for event monitoring. Additional plan as per the hospital course. Plan discussed with: Patient Date of Service: December 30, 2024 Billing Provider: ODILON AMAYA MD Cardiology Common Codes: [id number] INP/OBS CARE (High) ODILON AMAYA MD December 30, 2024 14:16
[2024-12-31 01:00] VITALS: BP 141/69; PULSE 56; RESP 18; TEMP 98; O2SAT 96
[2024-12-31 05:00] VITALS: BP 153/75; PULSE 61; RESP 18; TEMP 98; O2SAT 94
[2024-12-31 08:00] VITALS: PULSE 69; PULSE 70; RESP 18; O2SAT 95
[2024-12-31 09:00] VITALS: BP 191/86; PULSE 68; RESP 17; TEMP 97.5; O2SAT 98
[2024-12-31] MEDS ORDERED: AMLO1TAB23 PO (10:55)
[2024-12-31] MEDS ORDERED: CARV-214 PO (10:55)
[2024-12-31] MEDS ORDERED: VALS1TAB58 PO (10:55)
--- NOTE | 2024-12-31 11:00 | DVHDS2 ---
Discharge Summary Date of Admission December 28, 2024 at 22:38 Date of Discharge: December 31, 2024 Labs/Diagnostic Data: Laboratory Results Test 12/30/24 06:01 12/29/24 06:22 12/28/24 17:58 12/28/24 16:30 Triglycerides Level 80 mg/dL (< 150) Cholesterol Level 131 mg/dL (< 200) LDL Cholesterol 79 mg/dL (< 100) HDL Cholesterol 36 mg/dL (40-59) White Blood Count 10.8 10^3/uL (4.4-10.8) Red Blood Count 4.55 10^6/uL (4.5-5.90) Hemoglobin 13.7 g/dL (13.5-17.5) Hematocrit 40.2 % (41.0-53.0) Mean Corpuscular Volume 88.3 fL (80.0-100.0) Mean Corpuscular Hemoglobin 30.2 pg (28.0-32.0) Mean Corpuscular Hemoglobin Concent 34.2 g/dL (32.0-36.0) Red Cell Distribution Width 13.9 % (11.8-14.3) Platelet Count 260 10^3/uL (140-450) Mean Platelet Volume 7.9 fL (6.9-10.8) Neutrophils (%) (Auto) 75.0 % (37.0-80.0) Lymphocytes (%) (Auto) 19.4 % (10.0-50.0) Monocytes (%) (Auto) 5.3 % (0.0-12.0) Eosinophils (%) (Auto) 0.1 % (0.0-7.0) Basophils (%) (Auto) 0.2 % (0.0-2.0) Neutrophils # (Auto) 8.1 10 ^3/uL (1.6-8.6) Lymphocytes # (Auto) 2.1 10 ^3/uL (0.4-5.4) Monocytes # (Auto) 0.6 10 ^3/uL (0-1.3) Eosinophils # (Auto) 0 10 ^3/uL (0-0.8) Basophils # (Auto) 0 10 ^3/uL (0-0.2) Nucleated Red Blood Cells 0.1 % Sodium Level 142 mmol/L (136-145) Potassium Level 3.7 mmol/L (3.5-5.1) Chloride Level 111 mmol/L (98-107) Carbon Dioxide Level 23 mmol/L (20-31) Anion Gap 8 (5-15) Blood Urea Nitrogen 15 mg/dL (9-23) Creatinine 0.94 mg/dL (0.700-1.30) Glomerular Filtration Rate Calc 89 mL/min (>90) BUN/Creatinine Ratio 16.0 (10.0-20.0) Serum Glucose 103 mg/dL (74-106) Calcium Level 9.3 mg/dL (8.7-10.4) Total Bilirubin 0.7 mg/dL (0.2-1.0) Aspartate Amino Transferase (AST) 22 U/L (13-40) Alanine Aminotransferase (ALT) 19 U/L (7-40) Alkaline Phosphatase 83 U/L (46-116) Total Protein 7.4 g/dL (5.7-8.2) Albumin 4.4 g/dL (3.2-4.8) Thyroid Stimulating Hormone (TSH) 2.32 uIU/mL (0.55-4.78) Urine Color Light-yellow (Yellow) Urine Clarity Clear (Clear) Urine pH 7.0 (5.0-9.0) Urine Specific [place] 1.020 (1.001-1.035) Urine Protein Negative (Negative) Urine Ketones Negative (Negative) Urine Blood Negative /uL (Negative) Urine Nitrite Negative (Negative) Urine Bilirubin Negative (Negative) Urine Urobilinogen Normal mg/dL (Negative) Urine Leukocyte Esterase Negative /uL (Negative) Urine RBC 9 /hpf (0 - 3) Urine Microscopic WBC < 1 /HPF (0-3) Urine Squamous Epithelial Cells Few /hpf (<5) Urine Bacteria None seen /hpf (None Seen) Urine Glucose Normal mg/dL (Normal) POC Glucose 103 mg/dl (70-106) Test 12/28/24 16:25 Troponin I High Sensitivity 20 ng/L (</=54) Other Laboratory Tests 12/29/24 06:22 Brief Hx & Hospital Course: Diagnoses: Presyncope Bradycardia Coronary artery disease with a history of stents on Xarelto Hypertensive emergency Bradycardia Hypertension Mixed hyperlipidemia History of MA in the past 69-year-old male with a history of hypertension and coronary artery disease came with the episodes of presyncope His blood pressure was elevated He was seen here by Cardiology MRI of the brain and carotid Doppler were normal Echocardiogram showed ejection fraction 65% and normal Medications at home were adjusted Following changes were made: Discontinue metoprolol Take carvedilol 3.125 mg twice a day Discontinue nifedipine Take amlodipine 10 mg daily Continue enalapril And valsartan 160 mg daily Resume other home medications The patient is stable for discharge to go home Follow up with his primary care physician on week as scheduled Condition at Discharge: Stable Final Diagnosis/Problems List Presyncope Bradycardia Coronary artery disease with a history of stents on Xarelto Hypertensive emergency Bradycardia Hypertension Mixed hyperlipidemia History of [place] in the past Discharge Disposition: Home SNF Discharge Will this Physician continue t: No Discharge Instruct/Medications Diet: Cardiac 2g Na,low cholest Activity: No Restrictions, As Tolerated Follow Up/Referral: PCP as soon as possible Medications: Discontinue metoprolol Take carvedilol 3.125 mg twice a day Discontinue nifedipine Take amlodipine 10 mg daily Continue enalapril Resume other home medications Discharge Statement: "Patient was advised to return to the ER or call 911 if any headaches, dizziness, shortness of breath, chest pain, abdominal pain, bleeding, fevers, or worsening of medical condition. Patient was counseled about treatment plan, medications, possible side effects, patient�verbalized understanding. All questions were answered to the best of my ability. This discharge took greater then 30 minutes in planning, reviewing documentation, counseling the patient, and discussing with other team members." ASSESSMENT ASSESSMENT Assessment Presyncope Bradycardia Coronary artery disease with a history of stents on Xarelto Hypertensive emergency Bradycardia Hypertension Mixed hyperlipidemia History of [place] in the past Date of Service: December 31, 2024 Billing Provider: INDRA JOHNSTON MD Common Visit Codes: [id number] DISCH DAY >30min INDRA JOHNSTON MD December 31, 2024 11:00
[2024-12-31 13:00] VITALS: BP 162/75; PULSE 71; RESP 17; TEMP 97.7; O2SAT 98
[2024-12-31 13:15] VITALS: BP 162/89; PULSE 52; RESP 18; TEMP 97.6
--- NOTE | 2024-12-31 22:40 | DVHPN2 ---
Progress Note - Dictate Date Seen: December 31, 2024 Medical Necessity Reason Pt with a Central, PICC or Fol: No Subjective Patient was seen and evaluated in follow up. Patient has no new complaints at this time. Patient denies any cardiac symptoms. Patient is cardiac stable for discharge. Telemetry reviewed. vital signs Vital Sign Date Time Temp Pulse Resp B/P (MAP) Pulse Ox O2 Delivery O2 Flow Rate FiO2 12/31/24 13:15 97.6 52 18 12/31/24 13:00 162/75 (104) 98 12/31/24 08:00 Room Air* 0 21 Total Intake and Output 12/30/24 12/30/24 12/31/24 15:00 23:00 07:00 Intake Total 925 ml 900 ml Output Total 800 ml Balance 925 ml 100 ml objective GENERAL: Alert and oriented x 3. No acute distress. EYES: PERRL, EOMI. Anicteric. HENT: Moist mucous membranes. LUNGS: Clear to auscultation bilaterally. CARDIOVASCULAR: Regular rate and rhythm. ABDOMEN: Soft, nontender and nondistended. EXTREMITIES: No edema. NEUROLOGIC: No focal neurological deficits. SKIN: Warm, dry. laboratory and microbiology Laboratory Tests 12/29/24 06:22 Test 12/29/24 06:22 Range/Units Serum Glucose 103 74-106 mg/dL Problem List Near-syncope. Bradycardia. CAD. Hypertensive emergency. Bradycardia. Assessment/Plan Continued all current supportive medical care. Metoprolol titrate as tolerated. Continue statin. Amlodipine, Valsartan. Patient to follow up outpatient for event monitoring. Additional plan as per the hospital course. Plan discussed with: Patient ODILON AMAYA MD December 31, 2024 22:40
--- NOTE | 2025-01-02 00:24 | DVHEEG2 ---
Neurology EEG Procedural Note Procedural Note EXAM DATE: 12/31/2024 REFERRING DOCTOR: Dr. Lee TECHNIQUE: Eighteen channels of EEG, 2 channels of EOG, and 1 channel of EKG were recorded using the International 10/20 system. CLINICAL DATA: The patient was referred for an EEG evaluation for the evidence of seizure disorder. MEDICATIONS: See chart BACKGROUND ACTIVITY: While the patient was awake, the background activity consisted of well regulated 10-11 Hz rhythmic waveforms, symmetrically distributed over both posterior quadrants and was reactive to eye opening. ACTIVATION: Hyperventilation: Not done Photic Stimulation: Not done Sleep: Not seen IMPRESSION: This is a normal EEG. No focal, lateralized, or epileptiform features are noted. If clinically indicated to rule out a seizure disorder, recommend repeat EEG with sleep deprivation. The EKG channel showed an irregular heart rate of 66/min[place] [address] OTTONIEL LEE MD January 02, 2025 00:24
== END 2024-12-31 13:41 | disposition home or self-care (01) | DRG 305 ==
LOC: EDBD 15:43 → ER 15:47 → OVERFLOW 22:38 → TELE-CENTR 12-29 01:18
PROVIDERS: ADMIT Internal Medicine Geriatric Medicine; ATTEND Internal Medicine Geriatric Medicine
DX: I16.1 Hypertensive emergency (principal); D72.829 Elevated white blood cell count, unspecified; E78.2 Mixed hyperlipidemia; I10 Essential (primary) hypertension; I25.10 Atherosclerotic heart disease of native coronary artery without angina pectoris; F17.210 Nicotine dependence, cigarettes, uncomplicated; R26.2 Difficulty in walking, not elsewhere classified; E66.9 Obesity, unspecified; R00.1 Bradycardia, unspecified; Z95.5 Presence of coronary angioplasty implant and graft; Z88.8 Allergy status to other drugs, medicaments and biological substances; Z79.899 Other long term (current) drug therapy; Z79.1 Long term (current) use of non-steroidal anti-inflammatories (NSAID); Z79.891 Long term (current) use of opiate analgesic; Z82.49 Family history of ischemic heart disease and other diseases of the circulatory system; I25.2 Old myocardial infarction; Z88.5 Allergy status to narcotic agent; Z79.82 Long term (current) use of aspirin; Z68.20 Body mass index [BMI] 20.0-20.9, adult
CPT/HCPCS: 36415; 70450; 70551; 80048; 80053; 80061; 81001; 82962; 84443; 84484; 85025; 93005; 93306; 93886; 95819; 96361; 96372; 96374; 99291; 99292; G0378